=== PATIENT | female | born 1970 | race Two or more races ===

== ENCOUNTER 2019-03-18 23:19 | Inpatient (IN) | payer MEDICAID ==
[~2019-03-18] VITALS: Ht 160 cm; Wt 63.6 kg
[~2019-03-18 23:19] MED LIST: ELTR50TA PO; FERR325T22 PO; FOLI1 PO; GLIP5TAB11 PO; INSLAN SQ; METF-445 PO; MULT-1203 PO; [UNRECOGNIZED DRUG - CODE] IV
[2019-03-18] MEDS ORDERED: GABA-531 PO (23:33)
[2019-03-18] MEDS ORDERED: METF-960 PO (23:33)
[2019-03-18] MEDS ORDERED: LEVE500T53 PO (23:33)
[2019-03-18] MEDS ORDERED: LISI-660 PO (23:33)
[2019-03-18] MEDS ORDERED: ASPI81 PO (23:33)
[2019-03-18 23:36] LABS: GLUCOSE,POINT OF CARE 148 MG/DL (70-110)
[2019-03-18 23:59] LABS: BASOPHILS % (AUTO) 1.9 % (0.0-2.0); HEMATOCRIT 31.3 % (36-46); HEMOGLOBIN 10.2 g/dL (12.0-16.0); LYMPHOCYTES # (AUTO) 0.7 K/uL (1.0-4.8); LYMPHOCYTES % (AUTO) 14.2 % (22.0-44.0); MEAN CORPUSCULAR HEMOGLOBIN 28.6 pg (26.0-34.0); MEAN CORPUSCULAR HGB CONC 32.6 G/dL (31.0-37.0); MEAN CORPUSCULAR VOLUME 88 fL (80-100); MONOCYTES # (AUTO) 0.4 K/uL (0.1-1.0); MONOCYTES % (AUTO) 8.4 % (2.0-9.0); NEUTROPHILS % (AUTO) 58.1 % (40.0-70.0); PLATELET COUNT (AUTO) 132 K/uL (150-450); RED BLOOD CELL COUNT(AUTO) 3.56 MIL/uL (4.00-5.20); RED CELL DISTRIBUTION WIDTH 15.9 % (11.5-14.5)
[2019-03-19 00:14] LABS: CALCIUM, TOTAL 8.9 mg/dL (8.8-10.5); CREATININE 2.39 mg/dL (0.60-1.30); POTASSIUM 5.2 mmol/L (3.5-5.1)
[2019-03-19 00:25] LABS: ALBUMIN 2.5 g/dL (3.4-5.0); BILIRUBIN,TOTAL 0.4 mg/dL (0.1-1.0); TOTAL PROTEIN, SERUM 6.5 g/dL (6.4-8.2)
[2019-03-19 00:35] LABS: EOSINOPHILS % (AUTO) 17.4 % (1.0-6.0)
[2019-03-19 02:40] LABS: APPEARANCE,URINE CLOUDY (CLEAR); BILIRUBIN,URINE NEGATIVE (NEGATIVE); GLUCOSE, URINE (UA) NEGATIVE (NEGATIVE); KETONES,URINE NEGATIVE (NEGATIVE); LEUKOCYTE ESTERASE ,URINE NEGATIVE (NEGATIVE); NITRATE,URINE NEGATIVE (NEGATIVE); OCCULT BLOOD,URINE SMALL (NEGATIVE); PROTEIN,URINE SEE CONFIRM (NEGATIVE); UROBILINOGEN,URINE 0.2 mg/dL (<=1.0)
[2019-03-19] MEDS ORDERED: SODIUM CHLORIDE 0.9% 1,000 ML IV ONE ×2 (02:45→08:15)
[2019-03-19] MEDS ORDERED: MORPHINE SULFATE 4 MG/ML SYRINGE IVP ONE (02:45)
[2019-03-19] MEDS ORDERED: ONDANSETRON HCL 4 MG/2 ML VIAL IVP ONE (02:45)
[2019-03-19 02:46] LABS: SULFOSALICYLIC ACID,URINE 4+ (Negative)
[2019-03-19 02:47] LABS: BACTERIA,URINE Many /HPF (None Seen); RBC,URINE 0-2 /HPF (0-2)
[2019-03-19 02:49] LABS: SQUAMOUS EPITHELIAL CELL,UR Rare /LPF (None Seen); TRANSITIONAL EPI CELLS,URINE Rare /LPF (None Seen)
[2019-03-19] MEDS ORDERED: CefTRIAXone 1 GM/DEXTROSE 50 ML IV ONE (04:15)
[2019-03-19] MEDS ORDERED: ONDANSETRON HCL 4 MG/2 ML VIAL IVP PRN ×2 (06:15→08:15)
[2019-03-19] MEDS ORDERED: 0.9% SODIUM CHLORIDE 10 ML SYRINGE IVP PRN (06:15)
[2019-03-19] MEDS ORDERED: ACETAMINOPHEN 325 MG TABLET PO PRN (06:15)
[2019-03-19] MEDS ORDERED: MAGNESIUM HYDROXIDE SUSPENSION 30 ML UDCUP PO PRN (08:15)
[2019-03-19] MEDS ORDERED: ZOLPIDEM TARTRATE 5 MG TABLET PO PRN (08:15)
[2019-03-19] MEDS ORDERED: BISACODYL 10 MG RECTAL RECTAL SUPPOSITORY PR PRN (08:15)
[2019-03-19] MEDS ORDERED: MORPHINE SULFATE 2 MG/ML SYRINGE IVP PRN (08:15)
[2019-03-19] MEDS ORDERED: DEXTROSE 50%-WATER 25 GM/50 ML SYRINGE IVP PRN (08:15)
[2019-03-19] MEDS ORDERED: HYDROCODONE/ACETAMINOPHEN 5-325 MG TABLET PO PRN (08:15)
[2019-03-19 08:19] VITALS: BP 139/77
[2019-03-19] MEDS: PANTOPRAZOLE SODIUM 40 MG DR TABLET PO SCH (08:56)
[2019-03-19] MEDS: GABAPENTIN 300 MG CAPSULE PO SCH ×3 (08:56→20:01)
[2019-03-19] MEDS: DOCUSATE SODIUM 100 MG CAPSULE PO SCH ×2 (08:56→20:01)
[2019-03-19] MEDS: ASPIRIN 81 MG CHEWABLE TABLET PO SCH (08:57)
[2019-03-19] MEDS: LevETIRAcetam 500 MG TABLET PO SCH ×2 (08:58→20:01)
[2019-03-19] MEDS: INSULIN GLARGINE,HUM.REC.ANLOG 100 UNITS/ML SQ SCH (10:05)
[2019-03-19 11:51] LABS: GLUCOMETER DEV NAME(LOC) 6N.1; GLUCOSE,POINT OF CARE 92 MG/DL (70-110)
[2019-03-19 12:00] LABS: GLUCOMETER DEV NAME(LOC) 6N.1; GLUCOSE,POINT OF CARE 157 MG/DL (70-110)
[2019-03-19] MEDS: INSULIN LISPRO 100 UNITS/ML SQ PRN (13:01)
[2019-03-19 13:16] VITALS: BP_SYST 123; BP_SYST 132; BP_DIAS 67; BP_DIAS 69
[2019-03-19] MEDS: HEPARIN SODIUM,PORCINE 5,000 UNITS/ML VIAL SQ SCH ×2 (16:21→23:17)
[2019-03-19 16:56] VITALS: BP 124/72
[2019-03-19] MEDS: GlipiZIDE 5 MG TABLET PO SCH (18:33)
[2019-03-19 19:30] VITALS: BP 138/71
[2019-03-19] MEDS ORDERED: PNEUMOCOCCAL VACCINE POLYVALENT 0.5 ML VIAL [PPSV23] IM ONE (19:30)
[2019-03-19] MEDS ORDERED: SODIUM CHLORIDE 0.9% 250 ML IV ONE (19:47)
[2019-03-19] MEDS: ACETAMINOPHEN 325 MG TABLET PO PRN (20:01)
[2019-03-19 21:06] LABS: GLUCOMETER DEV NAME(LOC) 6N.1; GLUCOSE,POINT OF CARE 125 MG/DL (70-110)
[2019-03-19 21:06] LABS: GLUCOMETER DEV NAME(LOC) 6N.1; GLUCOSE,POINT OF CARE 123 MG/DL (70-110)
[2019-03-19 23:15] VITALS: BP 124/66
[2019-03-20] MEDS ORDERED: SODIUM CHLORIDE 0.9% 500 ML IV ONE (02:57)
[2019-03-20] MEDS: CefTRIAXone 1 GM/DEXTROSE 50 ML IV SCH (03:01)
[2019-03-20 04:40] VITALS: BP 139/80
[2019-03-20 06:03] LABS: BASOPHILS % (AUTO) 1.4 % (0.0-2.0); EOSINOPHILS % (AUTO) 13.3 % (1.0-6.0); HEMATOCRIT 29.6 % (36-46); HEMOGLOBIN 9.6 g/dL (12.0-16.0); LYMPHOCYTES # (AUTO) 0.7 K/uL (1.0-4.8); LYMPHOCYTES % (AUTO) 12.5 % (22.0-44.0); MEAN CORPUSCULAR HEMOGLOBIN 28.9 pg (26.0-34.0); MEAN CORPUSCULAR HGB CONC 32.4 G/dL (31.0-37.0); MEAN CORPUSCULAR VOLUME 89 fL (80-100); MONOCYTES # (AUTO) 0.4 K/uL (0.1-1.0); MONOCYTES % (AUTO) 6.8 % (2.0-9.0); NEUTROPHILS # (AUTO) 3.9 K/uL (1.8-7.7); PLATELET COUNT (AUTO) 101 K/uL (150-450); RED BLOOD CELL COUNT(AUTO) 3.33 MIL/uL (4.00-5.20); RED CELL DISTRIBUTION WIDTH 15.7 % (11.5-14.5)
[2019-03-20 06:13] LABS: CALCIUM, TOTAL 8.3 mg/dL (8.8-10.5); CREATININE 2.05 mg/dL (0.60-1.30); POTASSIUM 5.1 mmol/L (3.5-5.1)
[2019-03-20] MEDS: GlipiZIDE 5 MG TABLET PO SCH (06:22)
[2019-03-20 06:31] LABS: GLUCOMETER DEV NAME(LOC) 6N.1; GLUCOSE,POINT OF CARE 193 MG/DL (70-110)
[2019-03-20 06:31] LABS: GLUCOMETER DEV NAME(LOC) 6N.1; GLUCOSE,POINT OF CARE 47 MG/DL (70-110)
[2019-03-20 06:31] LABS: GLUCOMETER DEV NAME(LOC) 6N.1; GLUCOSE,POINT OF CARE 55 MG/DL (70-110)
[2019-03-20 07:55] VITALS: BP 154/76
[2019-03-20] MEDS: DOCUSATE SODIUM 100 MG CAPSULE PO SCH ×2 (08:03→20:00)
[2019-03-20] MEDS: LevETIRAcetam 500 MG TABLET PO SCH ×2 (08:03→20:00)
[2019-03-20] MEDS: GABAPENTIN 300 MG CAPSULE PO SCH ×3 (08:04→20:00)
[2019-03-20] MEDS: HEPARIN SODIUM,PORCINE 5,000 UNITS/ML VIAL SQ SCH ×3 (08:04→23:31)
[2019-03-20] MEDS: PANTOPRAZOLE SODIUM 40 MG DR TABLET PO SCH (08:04)
[2019-03-20] MEDS: ASPIRIN 81 MG CHEWABLE TABLET PO SCH (08:04)
[2019-03-20] MEDS: INSULIN GLARGINE,HUM.REC.ANLOG 100 UNITS/ML SQ SCH (08:13)
[2019-03-20 09:01] LABS: GLUCOMETER DEV NAME(LOC) 6N.1; GLUCOSE,POINT OF CARE 194 MG/DL (70-110)
[2019-03-20] MEDS ORDERED: SODIUM CHLORIDE 0.9% 1,000 ML IV ONE (11:30)
[2019-03-20 11:52] VITALS: BP 139/77
[2019-03-20] MEDS: ACETAMINOPHEN 325 MG TABLET PO PRN (11:56)
[2019-03-20 14:35] LABS: GLUCOMETER DEV NAME(LOC) 6N.1; GLUCOSE,POINT OF CARE 178 MG/DL (70-110)
[2019-03-20 15:44] VITALS: BP 135/73
[2019-03-20] MEDS: INSULIN LISPRO 100 UNITS/ML SQ PRN (20:09)
[2019-03-20 20:12] VITALS: BP 133/77
[2019-03-20 21:46] LABS: GLUCOMETER DEV NAME(LOC) 6N.1; GLUCOSE,POINT OF CARE 121 MG/DL (70-110)
[2019-03-20 21:46] LABS: GLUCOMETER DEV NAME(LOC) 6N.1; GLUCOSE,POINT OF CARE 204 MG/DL (70-110)
[2019-03-20 23:54] VITALS: BP 138/80
[2019-03-21] MEDS: CefTRIAXone 1 GM/DEXTROSE 50 ML IV SCH (03:39)
[2019-03-21 04:00] VITALS: BP 134/78
[2019-03-21 05:51] LABS: GLUCOMETER DEV NAME(LOC) 6N.1; GLUCOSE,POINT OF CARE 103 MG/DL (70-110)
[2019-03-21 06:58] LABS: HEMATOCRIT 29.2 % (36-46); HEMOGLOBIN 9.4 g/dL (12.0-16.0); LYMPHOCYTES # (AUTO) 0.7 K/uL (1.0-4.8); LYMPHOCYTES % (AUTO) 13.7 % (22.0-44.0); MEAN CORPUSCULAR HEMOGLOBIN 28.7 pg (26.0-34.0); MEAN CORPUSCULAR HGB CONC 32.2 G/dL (31.0-37.0); MEAN CORPUSCULAR VOLUME 89 fL (80-100); MONOCYTES # (AUTO) 0.4 K/uL (0.1-1.0); MONOCYTES % (AUTO) 7.6 % (2.0-9.0); NEUTROPHILS # (AUTO) 3.1 K/uL (1.8-7.7); NEUTROPHILS % (AUTO) 62.2 % (40.0-70.0); PLATELET COUNT (AUTO) 111 K/uL (150-450); RED BLOOD CELL COUNT(AUTO) 3.27 MIL/uL (4.00-5.20); RED CELL DISTRIBUTION WIDTH 15.6 % (11.5-14.5)
[2019-03-21 07:07] LABS: EOSINOPHILS % (AUTO) 15.5 % (1.0-6.0)
[2019-03-21 07:39] LABS: CALCIUM, TOTAL 8.5 mg/dL (8.8-10.5); CREATININE 2.15 mg/dL (0.60-1.30); POTASSIUM 5.4 mmol/L (3.5-5.1)
[2019-03-21 07:53] VITALS: BP_SYST 115; BP_SYST 136; BP_DIAS 78; BP_DIAS 85
[2019-03-21] MEDS: PANTOPRAZOLE SODIUM 40 MG DR TABLET PO SCH (07:55)
[2019-03-21] MEDS: DOCUSATE SODIUM 100 MG CAPSULE PO SCH (07:55)
[2019-03-21] MEDS: HEPARIN SODIUM,PORCINE 5,000 UNITS/ML VIAL SQ SCH ×2 (07:55→17:12)
[2019-03-21] MEDS: ASPIRIN 81 MG CHEWABLE TABLET PO SCH (07:55)
[2019-03-21] MEDS: LevETIRAcetam 500 MG TABLET PO SCH (07:55)
[2019-03-21] MEDS: GABAPENTIN 300 MG CAPSULE PO SCH ×2 (07:55→17:12)
[2019-03-21 11:23] VITALS: BP 140/76
[2019-03-21] MEDS ORDERED: CIPR500S5 PO (12:27)
[2019-03-21] MEDS ORDERED: SODIUM POLYSTYRENE SULFONATE 15 GM/60 ML SUSPENSION BOTTLE PO ONE (12:30)
[2019-03-21] MEDS ORDERED: CIP250 PO (12:49)
[2019-03-21 12:50] LABS: GLUCOMETER DEV NAME(LOC) 6N.1; GLUCOSE,POINT OF CARE 90 MG/DL (70-110)
[2019-03-21 16:15] VITALS: BP 144/82
== END 2019-03-21 17:45 | disposition home or self-care (01) | DRG 469 ==
LOC: EMS 23:21 → 6N 03-19 05:51
PROVIDERS: ADMIT Internal Medicine; ATTEND Internal Medicine
DX: N17.9 Acute kidney failure, unspecified (principal); E11.22 Type 2 diabetes mellitus with diabetic chronic kidney disease; E11.649 Type 2 diabetes mellitus with hypoglycemia without coma; N10 Acute pyelonephritis; E87.5 Hyperkalemia; N18.3 Chronic kidney disease, stage 3 (moderate); D63.8 Anemia in other chronic diseases classified elsewhere; E87.6 Hypokalemia; E78.5 Hyperlipidemia, unspecified; I12.9 Hypertensive chronic kidney disease with stage 1 through stage 4 chronic kidney disease, or unspecified chronic kidney disease; B96.20 Unspecified Escherichia coli [E. coli] as the cause of diseases classified elsewhere; Z87.440 Personal history of urinary (tract) infections
CPT/HCPCS: 74176; 76770; 83036; 84132; 87086; 90732; 93970; J0696; J1644; J1815; J2270; J2405; J7030; J7040; J7050

== ENCOUNTER 2019-06-13 15:18 | Inpatient (IN) | payer MEDICAID ==
[~2019-06-13] VITALS: Ht 162.6 cm; Wt 66.1 kg
[~2019-06-13 15:18] MED LIST changes: +ASPI81 PO; +CIP250 PO; -FERR325T22 PO; -FOLI1 PO; +GABA-531 PO; -GLIP5TAB11 PO; -INSLAN SQ; +LEVE500T53 PO; -METF-445 PO; -MULT-1203 PO; -[UNRECOGNIZED DRUG - CODE] IV
[2019-06-13] MEDS ORDERED: INSU100I21 SQ (15:41)
[2019-06-13] MEDS ORDERED: METF-960 PO (15:41)
[2019-06-13] MEDS ORDERED: AMPI500C68 PO (15:41)
[2019-06-13] MEDS ORDERED: LISI-662 PO (15:41)
[2019-06-13] MEDS ORDERED: ACET-2247 PO (15:41)
[2019-06-13] MEDS ORDERED: SULF1TAB42 PO (15:41)
[2019-06-13] MEDS ORDERED: ELTR75TA PO (15:41)
[2019-06-13] MEDS ORDERED: FURO20 PO (15:41)
[2019-06-13] MEDS ORDERED: ATOR40TA28 PO (15:41)
[2019-06-13 15:42] LABS: GLUCOSE,POINT OF CARE 173 MG/DL (70-110)
[2019-06-13] MEDS ORDERED: VANCOMYCIN HCL 1.5 GM in DEXTROSE 5%-WATER 250 ML IV ONE ×2 (16:00→23:45)
[2019-06-13] MEDS ORDERED: PIPERACILLIN/TAZO 3.375 GM/D5W 50 ML IV ONE (16:00)
[2019-06-13 16:24] LABS: BASOPHILS % (AUTO) 0.6 % (0.0-2.0); EOSINOPHILS % (AUTO) 4.3 % (1.0-6.0); HEMATOCRIT 31.2 % (36-46); HEMOGLOBIN 9.9 g/dL (12.0-16.0); LYMPHOCYTES # (AUTO) 0.8 K/uL (1.0-4.8); LYMPHOCYTES % (AUTO) 13.1 % (22.0-44.0); MEAN CORPUSCULAR HEMOGLOBIN 27.3 pg (26.0-34.0); MEAN CORPUSCULAR HGB CONC 31.9 G/dL (31.0-37.0); MEAN CORPUSCULAR VOLUME 86 fL (80-100); MONOCYTES # (AUTO) 0.5 K/uL (0.1-1.0); MONOCYTES % (AUTO) 8.1 % (2.0-9.0); NEUTROPHILS # (AUTO) 4.3 K/uL (1.8-7.7); NEUTROPHILS % (AUTO) 73.9 % (40.0-70.0); RED BLOOD CELL COUNT(AUTO) 3.65 MIL/uL (4.00-5.20)
[2019-06-13 16:32] LABS: CALCIUM, TOTAL 8.3 mg/dL (8.8-10.5); CREATININE 3.45 mg/dL (0.60-1.30); POTASSIUM 5.4 mmol/L (3.5-5.1)
[2019-06-13 16:38] LABS: ALBUMIN 2.3 g/dL (3.4-5.0); BILIRUBIN,TOTAL 0.5 mg/dL (0.1-1.0); TOTAL PROTEIN, SERUM 6.3 g/dL (6.4-8.2)
[2019-06-13 16:41] LABS: LACTIC ACID 0.5 mmol/L (0.4-2.0)
[2019-06-13] MEDS ORDERED: VANCOMYCIN HCL 1 GM/D5% WATER 200 ML IV ONE (16:45)
[2019-06-13 17:41] LABS: PLATELET COUNT (AUTO) 27 K/uL (150-450); PLATELET MORPHOLOGY COMMENT DECREASED
[2019-06-13] MEDS ORDERED: ONDANSETRON HCL 4 MG/2 ML VIAL IVP PRN ×2 (18:30→22:45)
[2019-06-13] MEDS ORDERED: 0.9% SODIUM CHLORIDE 10 ML SYRINGE IVP PRN (18:30)
[2019-06-13] MEDS ORDERED: ACETAMINOPHEN 325 MG TABLET PO PRN ×2 (18:30→22:45)
[2019-06-13 19:22] VITALS: BP 133/79
[2019-06-13 21:34] LABS: GLUCOMETER DEV NAME(LOC) 6N.1; GLUCOSE,POINT OF CARE 244 MG/DL (70-110)
[2019-06-13] MEDS ORDERED: DEXTROSE 50%-WATER 25 GM/50 ML SYRINGE IVP PRN (22:45)
[2019-06-13] MEDS ORDERED: BISACODYL 10 MG RECTAL RECTAL SUPPOSITORY PR PRN (22:45)
[2019-06-13] MEDS ORDERED: MAGNESIUM HYDROXIDE SUSPENSION 30 ML UDCUP PO PRN (22:45)
[2019-06-13] MEDS ORDERED: ZOLPIDEM TARTRATE 5 MG TABLET PO PRN (22:45)
[2019-06-13] MEDS ORDERED: MORPHINE SULFATE 2 MG/ML SYRINGE IVP PRN (22:45)
[2019-06-13] MEDS ORDERED: IPRATROPIUM BROMIDE 0.5 MG/2.5 ML NEB SOLUTION NEB PRN (22:45)
[2019-06-13] MEDS ORDERED: ALBUTEROL SULFATE 2.5 MG/0.5 ML NEB SOLUTION NEB PRN (22:45)
[2019-06-13] MEDS ORDERED: HYDROCODONE/ACETAMINOPHEN 5-325 MG TABLET PO PRN (22:45)
[2019-06-13] MEDS ORDERED: VANCOMYCIN HCL 1 GM/D5% WATER 200 ML IV SCH (23:30)
[2019-06-13 23:37] VITALS: BP 116/69
[2019-06-13] MEDS ORDERED: VANCOMYCIN HCL 1 GM/D5% WATER 200 ML IV PRN (23:45)
[2019-06-14] MEDS ORDERED: HEPARIN SODIUM,PORCINE 5,000 UNITS/ML VIAL SQ SCH
[2019-06-14] MEDS ORDERED: SODIUM CHLORIDE 0.9% 500 ML IV ONE (00:13)
[2019-06-14] MEDS: PIPERACILLIN/TAZO 3.375 GM/D5W 50 ML IV SCH ×5 (00:34→23:09)
[2019-06-14] MEDS: LevETIRAcetam 500 MG TABLET PO SCH ×3 (00:34→20:31)
[2019-06-14 05:37] VITALS: BP 118/72
[2019-06-14] MEDS: INSULIN LISPRO 100 UNITS/ML SQ PRN ×3 (05:51→20:37)
[2019-06-14 07:22] LABS: APPEARANCE,URINE CLOUDY (CLEAR); BILIRUBIN,URINE NEGATIVE (NEGATIVE); GLUCOSE, URINE (UA) 250 mg/dL (NEGATIVE); KETONES,URINE NEGATIVE (NEGATIVE); LEUKOCYTE ESTERASE ,URINE NEGATIVE (NEGATIVE); NITRATE,URINE NEGATIVE (NEGATIVE); OCCULT BLOOD,URINE NEGATIVE (NEGATIVE); PROTEIN,URINE SEE CONFIRM (NEGATIVE); UROBILINOGEN,URINE 0.2 mg/dL (<=1.0)
[2019-06-14 07:35] LABS: SULFOSALICYLIC ACID,URINE 4+ (Negative)
[2019-06-14 07:36] LABS: BACTERIA,URINE None Seen /HPF (None Seen); RBC,URINE None Seen /HPF (0-2); SQUAMOUS EPITHELIAL CELL,UR Rare /LPF (None Seen); TRIPLE PHOSPHATE CRYSTAL,UR Many /LPF (None Seen); WBC,URINE None Seen /HPF (0-5)
[2019-06-14 07:40] VITALS: BP 115/71
[2019-06-14 07:45] LABS: BASOPHILS % (AUTO) 0.9 % (0.0-2.0); EOSINOPHILS % (AUTO) 6.4 % (1.0-6.0); HEMATOCRIT 29.4 % (36-46); HEMOGLOBIN 9.5 g/dL (12.0-16.0); LYMPHOCYTES # (AUTO) 0.6 K/uL (1.0-4.8); MEAN CORPUSCULAR HEMOGLOBIN 27.9 pg (26.0-34.0); MEAN CORPUSCULAR HGB CONC 32.4 G/dL (31.0-37.0); MEAN CORPUSCULAR VOLUME 86 fL (80-100); MONOCYTES # (AUTO) 0.5 K/uL (0.1-1.0); MONOCYTES % (AUTO) 9.3 % (2.0-9.0); NEUTROPHILS # (AUTO) 3.9 K/uL (1.8-7.7); NEUTROPHILS % (AUTO) 71.4 % (40.0-70.0); RED BLOOD CELL COUNT(AUTO) 3.41 MIL/uL (4.00-5.20); RED CELL DISTRIBUTION WIDTH 18.1 % (11.5-14.5)
[2019-06-14 07:51] LABS: PLATELET COUNT (AUTO) 20 K/uL (150-450)
[2019-06-14] MEDS ORDERED: MetFORMIN HCL 500 MG TABLET PO SCH (08:00)
[2019-06-14 08:03] LABS: GLUCOMETER DEV NAME(LOC) 6N.1; GLUCOSE,POINT OF CARE 166 MG/DL (70-110)
[2019-06-14] MEDS: GABAPENTIN 300 MG CAPSULE PO SCH ×3 (08:28→20:31)
[2019-06-14] MEDS: DOCUSATE SODIUM 100 MG CAPSULE PO SCH ×2 (08:29→20:30)
[2019-06-14] MEDS: ASPIRIN 81 MG CHEWABLE TABLET PO SCH (08:29)
[2019-06-14] MEDS: ATORVASTATIN CALCIUM 40 MG TABLET PO SCH (08:29)
[2019-06-14] MEDS ORDERED: FUROSEMIDE 20 MG TABLET PO SCH (09:00)
[2019-06-14] MEDS ORDERED: LISINOPRIL 20 MG TABLET PO SCH (09:00)
[2019-06-14 09:01] LABS: ALBUMIN 1.9 g/dL (3.4-5.0); BILIRUBIN,TOTAL 0.4 mg/dL (0.1-1.0); CALCIUM, TOTAL 8.1 mg/dL (8.8-10.5); CREATININE 3.38 mg/dL (0.60-1.30); POTASSIUM 5.3 mmol/L (3.5-5.1); TOTAL PROTEIN, SERUM 5.7 g/dL (6.4-8.2)
[2019-06-14 11:47] VITALS: BP 116/77
[2019-06-14 12:18] LABS: GLUCOMETER DEV NAME(LOC) 6N.1; GLUCOSE,POINT OF CARE 125 MG/DL (70-110)
[2019-06-14 15:40] VITALS: BP 141/89
[2019-06-14] MEDS: PROMACTA 75 MG PO SCH (17:53)
[2019-06-14 19:05] LABS: GLUCOMETER DEV NAME(LOC) 6N.1; GLUCOSE,POINT OF CARE 173 MG/DL (70-110)
[2019-06-14 20:50] VITALS: BP 120/71
[2019-06-14 21:16] LABS: GLUCOMETER DEV NAME(LOC) 6N.1; GLUCOSE,POINT OF CARE 254 MG/DL (70-110)
[2019-06-14 23:39] VITALS: BP 107/68
[2019-06-15 04:15] VITALS: BP 125/74
[2019-06-15] MEDS: PIPERACILLIN/TAZO 3.375 GM/D5W 50 ML IV SCH ×4 (05:16→23:53)
[2019-06-15 05:32] LABS: GLUCOMETER DEV NAME(LOC) 6N.1; GLUCOSE,POINT OF CARE 114 MG/DL (70-110)
[2019-06-15 07:18] LABS: % IRON SATURATION 36.4 % (22-44)
[2019-06-15 07:23] LABS: CALCIUM, TOTAL 7.8 mg/dL (8.8-10.5); CREATININE 3.15 mg/dL (0.60-1.30); MAGNESIUM 1.9 mg/dL (1.80-2.40); PHOSPHORUS 4.2 mg/dL (2.5-4.9); POTASSIUM 5.4 mmol/L (3.5-5.1)
[2019-06-15 08:01] VITALS: BP 129/77
[2019-06-15] MEDS: ASPIRIN 81 MG CHEWABLE TABLET PO SCH (09:00)
[2019-06-15] MEDS: FUROSEMIDE 40 MG/4 ML VIAL IVP SCH (09:37)
[2019-06-15] MEDS: DOCUSATE SODIUM 100 MG CAPSULE PO SCH ×2 (09:37→21:04)
[2019-06-15] MEDS: LevETIRAcetam 500 MG TABLET PO SCH ×2 (09:37→21:04)
[2019-06-15] MEDS: ATORVASTATIN CALCIUM 40 MG TABLET PO SCH (09:37)
[2019-06-15] MEDS: GABAPENTIN 300 MG CAPSULE PO SCH ×3 (09:37→21:04)
[2019-06-15] MEDS: PROMACTA 75 MG PO SCH (09:38)
[2019-06-15] MEDS: EPOETIN ALFA 10,000 UNITS/ML VIAL SQ SCH (09:43)
[2019-06-15 11:11] VITALS: BP 123/73
[2019-06-15] MEDS: INSULIN LISPRO 100 UNITS/ML SQ PRN ×3 (11:46→21:05)
[2019-06-15 17:07] VITALS: BP 131/76
[2019-06-15 18:44] LABS: GLUCOMETER DEV NAME(LOC) 4E.2; GLUCOSE,POINT OF CARE 245 MG/DL (70-110)
[2019-06-15 18:44] LABS: GLUCOMETER DEV NAME(LOC) 4E.2; GLUCOSE,POINT OF CARE 210 MG/DL (70-110)
[2019-06-15 19:32] VITALS: BP 125/76
[2019-06-15 20:07] LABS: CREATININE,URINE 31.1 mg/dL (30.0-125.0)
[2019-06-15 20:13] LABS: CREATININE,SERUM FOR CRCL 3.15 mg/dL (0.60-1.30)
[2019-06-15 21:23] LABS: GLUCOMETER DEV NAME(LOC) 4E.2; GLUCOSE,POINT OF CARE 203 MG/DL (70-110)
[2019-06-15 23:45] VITALS: BP 111/68
[2019-06-16 05:16] VITALS: BP 118/74
[2019-06-16] MEDS: PIPERACILLIN/TAZO 3.375 GM/D5W 50 ML IV SCH ×4 (06:40→23:48)
[2019-06-16 06:48] LABS: CALCIUM, TOTAL 7.9 mg/dL (8.8-10.5); CREATININE 3.16 mg/dL (0.60-1.30); MAGNESIUM 1.9 mg/dL (1.80-2.40); PHOSPHORUS 4.2 mg/dL (2.5-4.9); POTASSIUM 4.7 mmol/L (3.5-5.1); VANCOMYCIN,RANDOM 18.4 mcg/mL (25.0-50.0)
[2019-06-16 07:58] VITALS: BP 116/67
[2019-06-16] MEDS: ASPIRIN 81 MG CHEWABLE TABLET PO SCH (08:54)
[2019-06-16] MEDS: PROMACTA 75 MG PO SCH (08:54)
[2019-06-16] MEDS: DOCUSATE SODIUM 100 MG CAPSULE PO SCH ×2 (08:54→20:40)
[2019-06-16] MEDS: ATORVASTATIN CALCIUM 40 MG TABLET PO SCH (08:54)
[2019-06-16] MEDS: GABAPENTIN 300 MG CAPSULE PO SCH ×3 (08:54→20:40)
[2019-06-16] MEDS: LevETIRAcetam 500 MG TABLET PO SCH ×2 (08:54→20:40)
[2019-06-16] MEDS: FUROSEMIDE 40 MG/4 ML VIAL IVP SCH (08:55)
[2019-06-16] MEDS ORDERED: VANCOMYCIN HCL 1.25 GM in DEXTROSE 5%-WATER 250 ML IV ONE (10:00)
[2019-06-16 11:36] VITALS: BP 137/83
[2019-06-16] MEDS: INSULIN LISPRO 100 UNITS/ML SQ PRN ×3 (12:09→20:47)
[2019-06-16 19:40] VITALS: BP 127/76
[2019-06-16 19:58] LABS: GLUCOMETER DEV NAME(LOC) 6N.1; GLUCOSE,POINT OF CARE 215 MG/DL (70-110)
[2019-06-16 23:15] VITALS: BP 120/74
[2019-06-17] MEDS ORDERED: SODIUM CHLORIDE 0.9% 500 ML IV ONE (04:31)
[2019-06-17 04:55] VITALS: BP 124/75
[2019-06-17] MEDS: PIPERACILLIN/TAZO 3.375 GM/D5W 50 ML IV SCH ×4 (05:49→23:54)
[2019-06-17] MEDS: INSULIN LISPRO 100 UNITS/ML SQ PRN ×4 (06:54→21:22)
[2019-06-17 08:02] LABS: CALCIUM, TOTAL 8.4 mg/dL (8.8-10.5); CREATININE 2.99 mg/dL (0.60-1.30); MAGNESIUM 1.9 mg/dL (1.80-2.40); PHOSPHORUS 4.2 mg/dL (2.5-4.9); POTASSIUM 4.5 mmol/L (3.5-5.1)
[2019-06-17 08:08] VITALS: BP 114/70
[2019-06-17] MEDS: LevETIRAcetam 500 MG TABLET PO SCH ×2 (09:36→20:24)
[2019-06-17] MEDS: FUROSEMIDE 40 MG/4 ML VIAL IVP SCH (09:36)
[2019-06-17] MEDS: GABAPENTIN 300 MG CAPSULE PO SCH ×3 (09:36→20:24)
[2019-06-17] MEDS: PROMACTA 75 MG PO SCH (09:36)
[2019-06-17] MEDS: ASPIRIN 81 MG CHEWABLE TABLET PO SCH (09:37)
[2019-06-17] MEDS: EPOETIN ALFA 10,000 UNITS/ML VIAL SQ SCH (09:37)
[2019-06-17] MEDS: DOCUSATE SODIUM 100 MG CAPSULE PO SCH ×2 (09:37→20:24)
[2019-06-17] MEDS: ATORVASTATIN CALCIUM 40 MG TABLET PO SCH (09:37)
[2019-06-17 11:50] VITALS: BP 104/65
[2019-06-17 12:08] LABS: GLUCOMETER DEV NAME(LOC) 6N.1; GLUCOSE,POINT OF CARE 144 MG/DL (70-110)
[2019-06-17 12:08] LABS: GLUCOMETER DEV NAME(LOC) 6N.1; GLUCOSE,POINT OF CARE 174 MG/DL (70-110)
[2019-06-17 15:41] VITALS: BP 144/88
[2019-06-17 17:06] LABS: GLUCOMETER DEV NAME(LOC) 6N.2; GLUCOSE,POINT OF CARE 134 MG/DL (70-110)
[2019-06-17 17:06] LABS: GLUCOMETER DEV NAME(LOC) 6N.2; GLUCOSE,POINT OF CARE 228 MG/DL (70-110)
[2019-06-17 17:07] LABS: GLUCOMETER DEV NAME(LOC) 4E.2; GLUCOSE,POINT OF CARE 196 MG/DL (70-110)
[2019-06-17 19:45] VITALS: BP 132/75
[2019-06-17 20:28] LABS: GLUCOMETER DEV NAME(LOC) 6N.1; GLUCOSE,POINT OF CARE 254 MG/DL (70-110)
[2019-06-17 20:50] LABS: GLUCOMETER DEV NAME(LOC) 4E.2; GLUCOSE,POINT OF CARE 262 MG/DL (70-110)
[2019-06-17 23:35] VITALS: BP 130/78
[2019-06-18 04:25] VITALS: BP 127/76
[2019-06-18] MEDS: PIPERACILLIN/TAZO 3.375 GM/D5W 50 ML IV SCH ×4 (05:55→23:53)
[2019-06-18] MEDS: INSULIN LISPRO 100 UNITS/ML SQ PRN ×4 (06:22→20:45)
[2019-06-18 07:39] VITALS: BP 97/60
[2019-06-18 07:42] LABS: CALCIUM, TOTAL 8.1 mg/dL (8.8-10.5); CREATININE 3.27 mg/dL (0.60-1.30); POTASSIUM 4.4 mmol/L (3.5-5.1); VANCOMYCIN,RANDOM 20.1 mcg/mL (25.0-50.0)
[2019-06-18] MEDS: ASPIRIN 81 MG CHEWABLE TABLET PO SCH (08:30)
[2019-06-18] MEDS: LevETIRAcetam 500 MG TABLET PO SCH ×2 (08:30→20:39)
[2019-06-18] MEDS: ATORVASTATIN CALCIUM 40 MG TABLET PO SCH (08:30)
[2019-06-18] MEDS: DOCUSATE SODIUM 100 MG CAPSULE PO SCH ×2 (08:30→20:39)
[2019-06-18] MEDS: GABAPENTIN 300 MG CAPSULE PO SCH ×3 (08:30→20:39)
[2019-06-18] MEDS: PROMACTA 75 MG PO SCH (08:31)
[2019-06-18 10:07] LABS: GLUCOMETER DEV NAME(LOC) 4E.2; GLUCOSE,POINT OF CARE 151 MG/DL (70-110)
[2019-06-18 11:44] LABS: GLUCOMETER DEV NAME(LOC) 6N.1; GLUCOSE,POINT OF CARE 226 MG/DL (70-110)
[2019-06-18 11:49] VITALS: BP 118/75
[2019-06-18] MEDS: FUROSEMIDE 40 MG/4 ML VIAL IVP SCH (11:57)
[2019-06-18] MEDS ORDERED: VANCOMYCIN HCL 1.25 GM in DEXTROSE 5%-WATER 250 ML IV ONE (12:00)
[2019-06-18 16:13] VITALS: BP 131/67
[2019-06-18 17:01] LABS: GLUCOMETER DEV NAME(LOC) 6N.2; GLUCOSE,POINT OF CARE 347 MG/DL (70-110)
[2019-06-18 19:26] VITALS: BP 144/79
[2019-06-18 21:34] LABS: GLUCOMETER DEV NAME(LOC) 6N.1; GLUCOSE,POINT OF CARE 341 MG/DL (70-110)
[2019-06-19 00:27] VITALS: BP 131/77
[2019-06-19 04:00] VITALS: BP 124/71
[2019-06-19] MEDS: PIPERACILLIN/TAZO 3.375 GM/D5W 50 ML IV SCH ×2 (05:54→11:53)
[2019-06-19] MEDS: INSULIN LISPRO 100 UNITS/ML SQ PRN (05:55)
[2019-06-19 07:25] VITALS: BP 102/67
[2019-06-19 07:53] LABS: CALCIUM, TOTAL 8.6 mg/dL (8.8-10.5); CREATININE 2.86 mg/dL (0.60-1.30); POTASSIUM 4.5 mmol/L (3.5-5.1)
[2019-06-19] MEDS: DOCUSATE SODIUM 100 MG CAPSULE PO SCH (09:34)
[2019-06-19] MEDS: GABAPENTIN 300 MG CAPSULE PO SCH (09:34)
[2019-06-19] MEDS: LevETIRAcetam 500 MG TABLET PO SCH (09:34)
[2019-06-19] MEDS: PROMACTA 75 MG PO SCH (09:34)
[2019-06-19] MEDS: ATORVASTATIN CALCIUM 40 MG TABLET PO SCH (09:34)
[2019-06-19] MEDS: FUROSEMIDE 40 MG/4 ML VIAL IVP SCH (09:35)
[2019-06-19] MEDS: ASPIRIN 81 MG CHEWABLE TABLET PO SCH (09:40)
[2019-06-19 11:00] VITALS: BP 109/71
[2019-06-19 19:40] LABS: GLUCOMETER DEV NAME(LOC) 6N.2; GLUCOSE,POINT OF CARE 158 MG/DL (70-110)
== END 2019-06-19 13:00 | disposition home or self-care (01) | DRG 383 ==
LOC: EMS 15:22 → 6N 18:29 → 4E 06-15 05:46 → 6N 06-16 15:20
PROVIDERS: ADMIT Hospitalist; ATTEND Hospitalist
DX: L03.115 Cellulitis of right lower limb (principal); N17.9 Acute kidney failure, unspecified; D69.3 Immune thrombocytopenic purpura; I13.2 Hypertensive heart and chronic kidney disease with heart failure and with stage 5 chronic kidney disease, or end stage renal disease; E44.0 Moderate protein-calorie malnutrition; E11.22 Type 2 diabetes mellitus with diabetic chronic kidney disease; N18.6 End stage renal disease; E87.5 Hyperkalemia; E11.40 Type 2 diabetes mellitus with diabetic neuropathy, unspecified; E11.621 Type 2 diabetes mellitus with foot ulcer; L97.519 Non-pressure chronic ulcer of other part of right foot with unspecified severity; D64.9 Anemia, unspecified; E78.5 Hyperlipidemia, unspecified; I34.0 Nonrheumatic mitral (valve) insufficiency; E11.319 Type 2 diabetes mellitus with unspecified diabetic retinopathy without macular edema; E11.51 Type 2 diabetes mellitus with diabetic peripheral angiopathy without gangrene; G40.909 Epilepsy, unspecified, not intractable, without status epilepticus; I25.10 Atherosclerotic heart disease of native coronary artery without angina pectoris; I50.32 Chronic diastolic (congestive) heart failure; N13.30 Unspecified hydronephrosis; F17.210 Nicotine dependence, cigarettes, uncomplicated; N27.0 Small kidney, unilateral; Z79.4 Long term (current) use of insulin; Z79.82 Long term (current) use of aspirin; Z79.899 Other long term (current) drug therapy; Z86.73 Personal history of transient ischemic attack (TIA), and cerebral infarction without residual deficits; Z98.891 History of uterine scar from previous surgery; Z99.2 Dependence on renal dialysis; Z68.25 Body mass index [BMI] 25.0-25.9, adult
CPT/HCPCS: 76770; 81050; 82575; 83540; 83550; 83605; 83735; 84100; 84156; 84166; 84300; 87040; 87081; 93306; 93925; 93970; G0378; J0885; J1940; J2543; J3370; J7040; J7060

== ENCOUNTER 2019-07-23 12:05 | Inpatient (IN) | payer MEDICAID ==
[~2019-07-23] VITALS: Ht 162.6 cm; Wt 75.7 kg
[~2019-07-23 12:05] MED LIST changes: +ACET-2247 PO; +ASPI-728 PO; -ASPI81 PO; +ATOR40TA28 PO; -CIP250 PO; -ELTR50TA PO; +ELTR75TA PO; +FURO20 PO; +METF-960 PO; +SULF1TAB42 PO
[2019-07-23 12:30] LABS: GLUCOSE,POINT OF CARE 209 MG/DL (70-110)
[2019-07-23] MEDS ORDERED: VANCOMYCIN HCL 1 GM/D5% WATER 200 ML IV ONE (13:15)
[2019-07-23] MEDS ORDERED: PIPERACILLIN/TAZO 3.375 GM/D5W 50 ML IV ONE (13:15)
[2019-07-23 14:14] LABS: BASOPHILS % (AUTO) 0.5 % (0.0-2.0); HEMATOCRIT 26.3 % (36-46); HEMOGLOBIN 8.4 g/dL (12.0-16.0); LYMPHOCYTES # (AUTO) 0.7 K/uL (1.0-4.8); LYMPHOCYTES % (AUTO) 8.5 % (22.0-44.0); MEAN CORPUSCULAR HEMOGLOBIN 27.6 pg (26.0-34.0); MEAN CORPUSCULAR HGB CONC 32.1 G/dL (31.0-37.0); MEAN CORPUSCULAR VOLUME 86 fL (80-100); MONOCYTES # (AUTO) 0.6 K/uL (0.1-1.0); MONOCYTES % (AUTO) 7.3 % (2.0-9.0); NEUTROPHILS # (AUTO) 6.7 K/uL (1.8-7.7); NEUTROPHILS % (AUTO) 80.7 % (40.0-70.0); PLATELET COUNT (AUTO) 37 K/uL (150-450); RED BLOOD CELL COUNT(AUTO) 3.06 MIL/uL (4.00-5.20); RED CELL DISTRIBUTION WIDTH 19.2 % (11.5-14.5)
[2019-07-23 14:29] LABS: CALCIUM, TOTAL 8.1 mg/dL (8.8-10.5); CREATININE 2.09 mg/dL (0.60-1.30); POTASSIUM 5.4 mmol/L (3.5-5.1)
[2019-07-23 14:40] LABS: LACTIC ACID 1.4 mmol/L (0.4-2.0)
[2019-07-23 14:47] LABS: ALBUMIN 1.9 g/dL (3.4-5.0); BILIRUBIN,TOTAL 0.3 mg/dL (0.1-1.0); TOTAL PROTEIN, SERUM 5.8 g/dL (6.4-8.2)
[2019-07-23] MEDS ORDERED: ONDANSETRON HCL 4 MG/2 ML VIAL IVP PRN (15:45)
[2019-07-23] MEDS ORDERED: ACETAMINOPHEN 325 MG TABLET PO PRN (15:45)
[2019-07-23] MEDS ORDERED: DEXTROSE 50%-WATER 25 GM/50 ML SYRINGE IVP PRN (15:45)
[2019-07-23] MEDS: INSULIN LISPRO 100 UNITS/ML SQ PRN ×2 (17:22→20:33)
[2019-07-23 17:26] VITALS: BP 148/90
[2019-07-23] MEDS ORDERED: INFLUENZA VIRUS VACCINE QVS 2019-20 (3YR+)/PF 60 MCG/0.5 ML SYRINGE IM ONE (18:30)
[2019-07-23 19:28] LABS: GLUCOMETER DEV NAME(LOC) 6N.1; GLUCOSE,POINT OF CARE 257 MG/DL (70-110)
[2019-07-23 19:38] VITALS: BP 154/85
[2019-07-23 20:55] LABS: GLUCOMETER DEV NAME(LOC) 6N.2; GLUCOSE,POINT OF CARE 241 MG/DL (70-110)
[2019-07-23 23:43] VITALS: BP 145/94
[2019-07-24] MEDS ORDERED: ALBUTEROL SULFATE 2.5 MG/0.5 ML NEB SOLUTION NEB PRN (01:15)
[2019-07-24] MEDS ORDERED: MORPHINE SULFATE 2 MG/ML SYRINGE IVP PRN (01:15)
[2019-07-24] MEDS ORDERED: BISACODYL 10 MG RECTAL RECTAL SUPPOSITORY PR PRN (01:15)
[2019-07-24] MEDS ORDERED: SODIUM CHLORIDE 0.9% 1,000 ML IV SCH (01:15)
[2019-07-24] MEDS ORDERED: ZOLPIDEM TARTRATE 5 MG TABLET PO PRN (01:15)
[2019-07-24] MEDS ORDERED: IPRATROPIUM BROMIDE 0.5 MG/2.5 ML NEB SOLUTION NEB PRN (01:15)
[2019-07-24] MEDS ORDERED: ONDANSETRON HCL 4 MG/2 ML VIAL IVP PRN (01:15)
[2019-07-24] MEDS ORDERED: MAGNESIUM HYDROXIDE SUSPENSION 30 ML UDCUP PO PRN (01:15)
[2019-07-24] MEDS ORDERED: ACETAMINOPHEN 325 MG TABLET PO PRN (01:15)
[2019-07-24] MEDS ORDERED: HYDROCODONE/ACETAMINOPHEN 5-325 MG TABLET PO PRN (01:15)
[2019-07-24] MEDS ORDERED: VANCOMYCIN HCL 1 GM/D5% WATER 200 ML IV SCH (01:30)
[2019-07-24] MEDS ORDERED: PIPERACILLIN/TAZO 3.375 GM/D5W 50 ML IV SCH (01:30)
[2019-07-24] MEDS ORDERED: SODIUM CHLORIDE 0.9% 500 ML IV ONE (01:51)
[2019-07-24] MEDS: LevETIRAcetam 500 MG TABLET PO SCH ×3 (02:05→20:37)
[2019-07-24] MEDS: PIPERACILLIN SODIUM/TAZOBACTAM 2.25 GM in DEXTROSE 5%-WATER 50 ML IV SCH ×4 (02:06→20:38)
[2019-07-24 04:40] VITALS: BP 138/74
[2019-07-24 06:11] LABS: GLUCOMETER DEV NAME(LOC) 6N.2; GLUCOSE,POINT OF CARE 176 MG/DL (70-110)
[2019-07-24 07:25] VITALS: BP 133/83
[2019-07-24] MEDS: VANCOMYCIN HCL 1 GM/D5% WATER 200 ML IV SCH (07:29)
[2019-07-24 07:52] LABS: BASOPHILS % (AUTO) 0.7 % (0.0-2.0); EOSINOPHILS % (AUTO) 6.3 % (1.0-6.0); HEMATOCRIT 24.2 % (36-46); HEMOGLOBIN 7.9 g/dL (12.0-16.0); LYMPHOCYTES # (AUTO) 0.9 K/uL (1.0-4.8); LYMPHOCYTES % (AUTO) 14.5 % (22.0-44.0); MEAN CORPUSCULAR HEMOGLOBIN 27.9 pg (26.0-34.0); MEAN CORPUSCULAR HGB CONC 32.6 G/dL (31.0-37.0); MEAN CORPUSCULAR VOLUME 86 fL (80-100); MONOCYTES # (AUTO) 0.6 K/uL (0.1-1.0); NEUTROPHILS # (AUTO) 4.5 K/uL (1.8-7.7); NEUTROPHILS % (AUTO) 69.5 % (40.0-70.0); PLATELET COUNT (AUTO) 26 K/uL (150-450); RED BLOOD CELL COUNT(AUTO) 2.83 MIL/uL (4.00-5.20); RED CELL DISTRIBUTION WIDTH 18.8 % (11.5-14.5)
[2019-07-24] MEDS ORDERED: HEPARIN SODIUM,PORCINE 5,000 UNITS/ML VIAL SQ SCH (08:00)
[2019-07-24 08:12] LABS: ALBUMIN 1.7 g/dL (3.4-5.0); BILIRUBIN,TOTAL 0.3 mg/dL (0.1-1.0); CALCIUM, TOTAL 8.1 mg/dL (8.8-10.5); CREATININE 2.18 mg/dL (0.60-1.30); POTASSIUM 5.1 mmol/L (3.5-5.1); TOTAL PROTEIN, SERUM 5.5 g/dL (6.4-8.2)
[2019-07-24] MEDS: ASPIRIN 81 MG CHEWABLE TABLET PO SCH (08:27)
[2019-07-24] MEDS: DOCUSATE SODIUM 100 MG CAPSULE PO SCH ×2 (08:27→20:38)
[2019-07-24] MEDS: FUROSEMIDE 20 MG TABLET PO SCH (08:27)
[2019-07-24] MEDS: ATORVASTATIN CALCIUM 40 MG TABLET PO SCH (08:27)
[2019-07-24] MEDS: GABAPENTIN 300 MG CAPSULE PO SCH ×3 (08:27→20:37)
[2019-07-24] MEDS ORDERED: DEXTROSE 50%-WATER 25 GM/50 ML SYRINGE IVP PRN (11:30)
[2019-07-24] MEDS: INSULIN LISPRO 100 UNITS/ML SQ PRN ×3 (11:50→23:04)
[2019-07-24 16:59] VITALS: BP 147/92
[2019-07-24 17:43] LABS: GLUCOMETER DEV NAME(LOC) 6N.1; GLUCOSE,POINT OF CARE 134 MG/DL (70-110)
[2019-07-24 19:56] LABS: GLUCOMETER DEV NAME(LOC) 6N.2; GLUCOSE,POINT OF CARE 184 MG/DL (70-110)
[2019-07-24 20:00] VITALS: BP 147/99
[2019-07-25 00:39] VITALS: BP 142/88
[2019-07-25] MEDS: PIPERACILLIN SODIUM/TAZOBACTAM 2.25 GM in DEXTROSE 5%-WATER 50 ML IV SCH ×4 (02:37→20:21)
[2019-07-25 04:45] VITALS: BP 138/82
[2019-07-25] MEDS ORDERED: SODIUM CHLORIDE 0.9% 1,000 ML IV ONE (05:15)
[2019-07-25] MEDS ORDERED: BUPIVACAINE HCL/PF 0.5% 30 ML VIAL ONE (07:17)
[2019-07-25] MEDS ORDERED: VANCOMYCIN HCL 1 GM/VIAL ONE (07:17)
[2019-07-25] MEDS ORDERED: SODIUM CL IRRIG SOLN BAG 3,000 ML IRRIG ONE (07:17)
[2019-07-25] MEDS ORDERED: LIDOCAINE/PF 1% 30 ML VIAL ONE (07:17)
[2019-07-25] MEDS ORDERED: GELATIN SPONGE,ABSORBABLE 100 MM TP ONE (08:39)
[2019-07-25] MEDS ORDERED: FentaNYL CITRATE-PF 100 MCG/2 ML VIAL IVP PRN (09:00)
[2019-07-25] MEDS ORDERED: HYDROmorphone 2 MG/ML SYRINGE IVP PRN (09:00)
[2019-07-25 10:22] VITALS: BP 128/79
[2019-07-25 10:38] LABS: BASOPHILS % (AUTO) 0.9 % (0.0-2.0); EOSINOPHILS % (AUTO) 5.5 % (1.0-6.0); HEMATOCRIT 24.8 % (36-46); HEMOGLOBIN 7.9 g/dL (12.0-16.0); LYMPHOCYTES # (AUTO) 0.5 K/uL (1.0-4.8); MEAN CORPUSCULAR HEMOGLOBIN 27.6 pg (26.0-34.0); MEAN CORPUSCULAR HGB CONC 31.9 G/dL (31.0-37.0); MEAN CORPUSCULAR VOLUME 87 fL (80-100); MONOCYTES # (AUTO) 0.6 K/uL (0.1-1.0); MONOCYTES % (AUTO) 7.7 % (2.0-9.0); NEUTROPHILS # (AUTO) 6.1 K/uL (1.8-7.7); NEUTROPHILS % (AUTO) 78.9 % (40.0-70.0); RED BLOOD CELL COUNT(AUTO) 2.87 MIL/uL (4.00-5.20); RED CELL DISTRIBUTION WIDTH 19.1 % (11.5-14.5)
[2019-07-25] MEDS: ATORVASTATIN CALCIUM 40 MG TABLET PO SCH (10:40)
[2019-07-25] MEDS: FUROSEMIDE 20 MG TABLET PO SCH (10:40)
[2019-07-25] MEDS: DOCUSATE SODIUM 100 MG CAPSULE PO SCH ×2 (10:40→19:37)
[2019-07-25] MEDS: VANCOMYCIN HCL 1 GM/D5% WATER 200 ML IV SCH (10:40)
[2019-07-25] MEDS: LevETIRAcetam 500 MG TABLET PO SCH ×2 (10:40→19:38)
[2019-07-25] MEDS: GABAPENTIN 300 MG CAPSULE PO SCH ×3 (10:40→19:37)
[2019-07-25] MEDS: ASPIRIN 81 MG CHEWABLE TABLET PO SCH (10:40)
[2019-07-25 10:53] LABS: ALBUMIN 1.7 g/dL (3.4-5.0); BILIRUBIN,TOTAL 0.2 mg/dL (0.1-1.0); CALCIUM, TOTAL 8.1 mg/dL (8.8-10.5); CREATININE 2.41 mg/dL (0.60-1.30); POTASSIUM 5.6 mmol/L (3.5-5.1); TOTAL PROTEIN, SERUM 5.5 g/dL (6.4-8.2)
[2019-07-25 11:04] LABS: PLATELET COUNT (AUTO) 68 K/uL (150-450)
[2019-07-25 12:07] LABS: GLUCOMETER DEV NAME(LOC) 6N.1; GLUCOSE,POINT OF CARE 75 MG/DL (70-110)
[2019-07-25 12:07] LABS: GLUCOMETER DEV NAME(LOC) 6N.1; GLUCOSE,POINT OF CARE 242 MG/DL (70-110)
[2019-07-25 12:08] LABS: GLUCOMETER DEV NAME(LOC) 6N.1; GLUCOSE,POINT OF CARE 100 MG/DL (70-110)
[2019-07-25 15:39] VITALS: BP 122/77
[2019-07-25] MEDS ORDERED: SODIUM POLYSTYRENE SULFONATE 15 GM/60 ML SUSPENSION BOTTLE PO ONE (17:00)
[2019-07-25] MEDS: INSULIN LISPRO 100 UNITS/ML SQ PRN ×2 (17:12→20:25)
[2019-07-25] MEDS ORDERED: SODIUM CHLORIDE 0.45% 1,000 ML IV SCH (17:31)
[2019-07-25] MEDS ORDERED: OXYGEN THERAPY IH SCH (20:00)
[2019-07-25 20:16] VITALS: BP 127/76
[2019-07-25] MEDS ORDERED: KETOROLAC TROMETHAMINE 60 MG/2 ML VIAL IM ONE (21:42)
[2019-07-25] MEDS ORDERED: LIDOCAINE 1% 10 ML VIAL ONE (21:42)
[2019-07-25] MEDS ORDERED: PROPOFOL 1% 20 ML VIAL IVP ONE (21:42)
[2019-07-25 23:39] LABS: APPEARANCE,URINE CLEAR (CLEAR); BILIRUBIN,URINE NEGATIVE (NEGATIVE); GLUCOSE, URINE (UA) 250 mg/dL (NEGATIVE); KETONES,URINE NEGATIVE (NEGATIVE); LEUKOCYTE ESTERASE ,URINE NEGATIVE (NEGATIVE); NITRATE,URINE NEGATIVE (NEGATIVE); OCCULT BLOOD,URINE NEGATIVE (NEGATIVE); PH,URINE 7.5 (5.0-8.0); PROTEIN,URINE SEE CONFIRM (NEGATIVE); UROBILINOGEN,URINE 0.2 mg/dL (<=1.0)
[2019-07-25 23:41] LABS: CREATININE,URINE RANDOM 64.8 mg/dL (30.0-125.0); SODIUM,URINE RANDOM 55 mmol/l (20-110); UREA NITROGEN,URINE RANDOM 482 mg/dL (350-1000)
[2019-07-25 23:50] LABS: BACTERIA,URINE None Seen /HPF (None Seen); RBC,URINE 0-2 /HPF (0-2); SQUAMOUS EPITHELIAL CELL,UR Few /LPF (None Seen)
[2019-07-25 23:51] LABS: SULFOSALICYLIC ACID,URINE 4+ (Negative); TRIPLE PHOSPHATE CRYSTAL,UR Many /LPF (None Seen)
[2019-07-26] VITALS (7 sets, daily range): BP systolic 115–143; BP diastolic 66–79
[2019-07-26] MEDS: PIPERACILLIN SODIUM/TAZOBACTAM 2.25 GM in DEXTROSE 5%-WATER 50 ML IV SCH ×3 (02:31→22:40)
[2019-07-26] MEDS ORDERED: MIDAZOLAM HCL 2 MG/2 ML VIAL IVP ONE (05:23)
[2019-07-26] MEDS ORDERED: FentaNYL CITRATE-PF 100 MCG/2 ML VIAL IVP ONE (05:23)
[2019-07-26] MEDS: INSULIN LISPRO 100 UNITS/ML SQ PRN ×3 (05:46→18:03)
[2019-07-26 06:21] LABS: GLUCOMETER DEV NAME(LOC) 6N.1; GLUCOSE,POINT OF CARE 145 MG/DL (70-110)
[2019-07-26 08:01] LABS: BASOPHILS % (AUTO) 0.6 % (0.0-2.0); EOSINOPHILS % (AUTO) 7.9 % (1.0-6.0); HEMATOCRIT 21.8 % (36-46); HEMOGLOBIN 7.1 g/dL (12.0-16.0); LYMPHOCYTES % (AUTO) 16.7 % (22.0-44.0); MEAN CORPUSCULAR HGB CONC 32.5 G/dL (31.0-37.0); MEAN CORPUSCULAR VOLUME 86 fL (80-100); MONOCYTES # (AUTO) 0.6 K/uL (0.1-1.0); MONOCYTES % (AUTO) 10.4 % (2.0-9.0); NEUTROPHILS # (AUTO) 3.9 K/uL (1.8-7.7); NEUTROPHILS % (AUTO) 64.4 % (40.0-70.0); PLATELET COUNT (AUTO) 40 K/uL (150-450); RED BLOOD CELL COUNT(AUTO) 2.52 MIL/uL (4.00-5.20); RED CELL DISTRIBUTION WIDTH 19.1 % (11.5-14.5)
[2019-07-26 08:15] LABS: ALBUMIN 1.5 g/dL (3.4-5.0); BILIRUBIN,TOTAL 0.2 mg/dL (0.1-1.0); CALCIUM, TOTAL 7.8 mg/dL (8.8-10.5); CREATININE 2.66 mg/dL (0.60-1.30); MAGNESIUM 2.3 mg/dL (1.80-2.40); PHOSPHORUS 5.3 mg/dL (2.5-4.9); POTASSIUM 4.5 mmol/L (3.5-5.1); TOTAL PROTEIN, SERUM 5.2 g/dL (6.4-8.2)
[2019-07-26] MEDS: ASPIRIN 81 MG CHEWABLE TABLET PO SCH (08:38)
[2019-07-26] MEDS: DOCUSATE SODIUM 100 MG CAPSULE PO SCH ×2 (08:41→21:00)
[2019-07-26] MEDS: LevETIRAcetam 500 MG TABLET PO SCH ×2 (08:42→22:40)
[2019-07-26] MEDS: ATORVASTATIN CALCIUM 40 MG TABLET PO SCH (08:42)
[2019-07-26] MEDS ORDERED: VANCOMYCIN HCL 750 MG in DEXTROSE 5%-WATER 250 ML IV ONE (09:00)
[2019-07-26] MEDS: GABAPENTIN 300 MG CAPSULE PO SCH ×2 (16:30→22:40)
[2019-07-26 17:17] LABS: GLUCOMETER DEV NAME(LOC) 6N.2; GLUCOSE,POINT OF CARE 246 MG/DL (70-110)
[2019-07-26 17:17] LABS: GLUCOMETER DEV NAME(LOC) 6N.2; GLUCOSE,POINT OF CARE 250 MG/DL (70-110)
[2019-07-27 03:51] VITALS: BP 119/65
[2019-07-27] MEDS: PIPERACILLIN SODIUM/TAZOBACTAM 2.25 GM in DEXTROSE 5%-WATER 50 ML IV SCH ×3 (04:52→14:38)
[2019-07-27 06:07] LABS: GLUCOMETER DEV NAME(LOC) 6N.1; GLUCOSE,POINT OF CARE 191 MG/DL (70-110)
[2019-07-27 06:08] LABS: GLUCOMETER DEV NAME(LOC) 6N.1; GLUCOSE,POINT OF CARE 257 MG/DL (70-110)
[2019-07-27] MEDS: INSULIN LISPRO 100 UNITS/ML SQ PRN ×4 (06:45→22:54)
[2019-07-27 06:53] LABS: BASOPHILS % (AUTO) 0.6 % (0.0-2.0); EOSINOPHILS % (AUTO) 6.5 % (1.0-6.0); HEMATOCRIT 22.3 % (36-46); HEMOGLOBIN 7.3 g/dL (12.0-16.0); LYMPHOCYTES # (AUTO) 1.1 K/uL (1.0-4.8); LYMPHOCYTES % (AUTO) 18.7 % (22.0-44.0); MEAN CORPUSCULAR HGB CONC 32.6 G/dL (31.0-37.0); MEAN CORPUSCULAR VOLUME 86 fL (80-100); MONOCYTES # (AUTO) 0.6 K/uL (0.1-1.0); NEUTROPHILS # (AUTO) 3.9 K/uL (1.8-7.7); NEUTROPHILS % (AUTO) 64.2 % (40.0-70.0); PLATELET COUNT (AUTO) 29 K/uL (150-450); RED BLOOD CELL COUNT(AUTO) 2.59 MIL/uL (4.00-5.20); RED CELL DISTRIBUTION WIDTH 18.9 % (11.5-14.5)
[2019-07-27 07:37] LABS: ALBUMIN 1.6 g/dL (3.4-5.0); BILIRUBIN,TOTAL 0.3 mg/dL (0.1-1.0); CALCIUM, TOTAL 7.8 mg/dL (8.8-10.5); CREATININE 2.79 mg/dL (0.60-1.30); MAGNESIUM 2.4 mg/dL (1.80-2.40); PHOSPHORUS 5.2 mg/dL (2.5-4.9); POTASSIUM 4.8 mmol/L (3.5-5.1); TOTAL PROTEIN, SERUM 5.4 g/dL (6.4-8.2)
[2019-07-27 07:44] VITALS: BP 123/74
[2019-07-27] MEDS ORDERED: VANCOMYCIN HCL 750 MG in DEXTROSE 5%-WATER 250 ML IV SCH (08:00)
[2019-07-27] MEDS: LevETIRAcetam 500 MG TABLET PO SCH ×2 (09:27→22:31)
[2019-07-27] MEDS: DOCUSATE SODIUM 100 MG CAPSULE PO SCH ×2 (09:27→22:31)
[2019-07-27] MEDS: GABAPENTIN 300 MG CAPSULE PO SCH ×3 (09:27→22:31)
[2019-07-27] MEDS: ATORVASTATIN CALCIUM 40 MG TABLET PO SCH (09:27)
[2019-07-27] MEDS: ASPIRIN 81 MG CHEWABLE TABLET PO SCH (09:28)
[2019-07-27 11:13] VITALS: BP 144/79
[2019-07-27 11:49] LABS: GLUCOMETER DEV NAME(LOC) 6N.1; GLUCOSE,POINT OF CARE 236 MG/DL (70-110)
[2019-07-27] MEDS: SEVELAMER CARBONATE 800 MG TABLET PO SCH ×2 (12:30→18:15)
[2019-07-27 13:51] LABS: INR 1.2 (0.9-1.1); PROTHROMBIN TIME 12.4 SEC (9.4-11.6)
[2019-07-27 15:20] VITALS: BP 118/75
[2019-07-27] MEDS: LEVOFLOXACIN 250 MG TABLET PO SCH (18:15)
[2019-07-27 19:17] LABS: GLUCOMETER DEV NAME(LOC) 6N.1; GLUCOSE,POINT OF CARE 132 MG/DL (70-110)
[2019-07-27 20:05] VITALS: BP 131/77
[2019-07-27 20:58] LABS: GLUCOMETER DEV NAME(LOC) 6N.2; GLUCOSE,POINT OF CARE 211 MG/DL (70-110)
[2019-07-27] MEDS: CeFAZolin 1 GM/DEXTROSE 50 ML IV SCH (22:30)
[2019-07-27 23:00] LABS: GLUCOMETER DEV NAME(LOC) 6N.2; GLUCOSE,POINT OF CARE 171 MG/DL (70-110)
[2019-07-28] VITALS (10 sets, daily range): BP systolic 131–160; BP diastolic 75–93
[2019-07-28] MEDS: INSULIN LISPRO 100 UNITS/ML SQ PRN ×3 (05:41→22:06)
[2019-07-28 05:58] LABS: GLUCOMETER DEV NAME(LOC) 6N.1; GLUCOSE,POINT OF CARE 130 MG/DL (70-110)
[2019-07-28] MEDS ORDERED: VANCOMYCIN HCL 500 MG in DEXTROSE 5%-WATER 100 ML IV SCH (08:00)
[2019-07-28 08:02] LABS: BASOPHILS % (AUTO) 1.1 % (0.0-2.0); EOSINOPHILS % (AUTO) 9.2 % (1.0-6.0); HEMATOCRIT 22.5 % (36-46); HEMOGLOBIN 7.3 g/dL (12.0-16.0); LYMPHOCYTES # (AUTO) 0.9 K/uL (1.0-4.8); LYMPHOCYTES % (AUTO) 14.6 % (22.0-44.0); MEAN CORPUSCULAR HEMOGLOBIN 28.2 pg (26.0-34.0); MEAN CORPUSCULAR HGB CONC 32.6 G/dL (31.0-37.0); MEAN CORPUSCULAR VOLUME 87 fL (80-100); MONOCYTES # (AUTO) 0.5 K/uL (0.1-1.0); MONOCYTES % (AUTO) 8.7 % (2.0-9.0); NEUTROPHILS # (AUTO) 3.9 K/uL (1.8-7.7); NEUTROPHILS % (AUTO) 66.4 % (40.0-70.0); PLATELET COUNT (AUTO) 31 K/uL (150-450); RED CELL DISTRIBUTION WIDTH 19.3 % (11.5-14.5)
[2019-07-28] MEDS ORDERED: SODIUM CHLORIDE 0.9% 500 ML IV ONE (08:19)
[2019-07-28 08:45] LABS: ALBUMIN 1.6 g/dL (3.4-5.0); BILIRUBIN,TOTAL 0.2 mg/dL (0.1-1.0); CALCIUM, TOTAL 8.4 mg/dL (8.8-10.5); CREATININE 2.62 mg/dL (0.60-1.30); MAGNESIUM 2.4 mg/dL (1.80-2.40); PHOSPHORUS 5.1 mg/dL (2.5-4.9); POTASSIUM 4.8 mmol/L (3.5-5.1); TOTAL PROTEIN, SERUM 5.4 g/dL (6.4-8.2)
[2019-07-28] MEDS: CeFAZolin 1 GM/DEXTROSE 50 ML IV SCH ×2 (08:56→22:06)
[2019-07-28] MEDS: SEVELAMER CARBONATE 800 MG TABLET PO SCH ×3 (08:56→18:08)
[2019-07-28] MEDS: FUROSEMIDE 20 MG TABLET PO SCH (08:56)
[2019-07-28] MEDS: ATORVASTATIN CALCIUM 40 MG TABLET PO SCH (08:56)
[2019-07-28] MEDS: LevETIRAcetam 500 MG TABLET PO SCH ×2 (08:56→22:07)
[2019-07-28] MEDS: ASPIRIN 81 MG CHEWABLE TABLET PO SCH (08:57)
[2019-07-28] MEDS: GABAPENTIN 300 MG CAPSULE PO SCH ×3 (08:57→22:07)
[2019-07-28] MEDS: DOCUSATE SODIUM 100 MG CAPSULE PO SCH ×2 (09:00→22:07)
[2019-07-28] MEDS ORDERED: LIDOCAINE 1%/EPI 1:200,000/PF 10 ML VIAL ONE (11:08)
[2019-07-28] MEDS ORDERED: HEPARIN SODIUM 1000 UNITS/NS 500 ML ONE (11:08)
[2019-07-28] MEDS ORDERED: SODIUM CL IRRIG SOLN BOTTLE 250 ML IRRIG ONE (13:56)
[2019-07-28 20:17] LABS: GLUCOMETER DEV NAME(LOC) 6N.2; GLUCOSE,POINT OF CARE 110 MG/DL (70-110)
[2019-07-28 20:17] LABS: GLUCOMETER DEV NAME(LOC) 6N.2; GLUCOSE,POINT OF CARE 136 MG/DL (70-110)
[2019-07-29 00:08] VITALS: BP 148/84
[2019-07-29 05:12] VITALS: BP 130/72
[2019-07-29 05:34] LABS: GLUCOMETER DEV NAME(LOC) 6N.2; GLUCOSE,POINT OF CARE 163 MG/DL (70-110)
[2019-07-29 06:40] LABS: GLUCOMETER DEV NAME(LOC) 6N.2; GLUCOSE,POINT OF CARE 137 MG/DL (70-110)
[2019-07-29 06:44] LABS: BASOPHILS % (AUTO) 0.9 % (0.0-2.0); EOSINOPHILS % (AUTO) 8.3 % (1.0-6.0); HEMATOCRIT 24.1 % (36-46); HEMOGLOBIN 7.8 g/dL (12.0-16.0); LYMPHOCYTES % (AUTO) 16.5 % (22.0-44.0); MEAN CORPUSCULAR HEMOGLOBIN 28.1 pg (26.0-34.0); MEAN CORPUSCULAR HGB CONC 32.3 G/dL (31.0-37.0); MEAN CORPUSCULAR VOLUME 87 fL (80-100); MONOCYTES # (AUTO) 0.6 K/uL (0.1-1.0); NEUTROPHILS # (AUTO) 3.9 K/uL (1.8-7.7); NEUTROPHILS % (AUTO) 64.3 % (40.0-70.0); RED BLOOD CELL COUNT(AUTO) 2.77 MIL/uL (4.00-5.20); RED CELL DISTRIBUTION WIDTH 19.6 % (11.5-14.5)
[2019-07-29] MEDS: INSULIN LISPRO 100 UNITS/ML SQ PRN ×4 (06:45→21:29)
[2019-07-29 07:08] LABS: ALBUMIN 1.6 g/dL (3.4-5.0); BILIRUBIN,TOTAL 0.3 mg/dL (0.1-1.0); CALCIUM, TOTAL 8.3 mg/dL (8.8-10.5); CREATININE 2.49 mg/dL (0.60-1.30); POTASSIUM 4.4 mmol/L (3.5-5.1); TOTAL PROTEIN, SERUM 5.4 g/dL (6.4-8.2)
[2019-07-29] MEDS: CeFAZolin 1 GM/DEXTROSE 50 ML IV SCH ×2 (07:33→21:28)
[2019-07-29 07:50] VITALS: BP 132/72
[2019-07-29] MEDS: ATORVASTATIN CALCIUM 40 MG TABLET PO SCH (07:56)
[2019-07-29] MEDS: FUROSEMIDE 20 MG TABLET PO SCH (07:56)
[2019-07-29] MEDS: LevETIRAcetam 500 MG TABLET PO SCH ×2 (07:57→21:27)
[2019-07-29] MEDS: GABAPENTIN 300 MG CAPSULE PO SCH ×3 (07:57→21:27)
[2019-07-29] MEDS: SEVELAMER CARBONATE 800 MG TABLET PO SCH ×3 (07:57→17:39)
[2019-07-29] MEDS: ASPIRIN 81 MG CHEWABLE TABLET PO SCH (07:57)
[2019-07-29] MEDS: LEVOFLOXACIN 250 MG TABLET PO SCH (07:59)
[2019-07-29] MEDS: DOCUSATE SODIUM 100 MG CAPSULE PO SCH ×2 (08:01→21:27)
[2019-07-29 08:49] LABS: PLATELET COUNT (AUTO) 46 K/uL (150-450)
[2019-07-29 11:39] VITALS: BP 144/85
[2019-07-29] MEDS: ELTROMBOPAG OLAMINE 50 MG PO SCH (12:08)
[2019-07-29 15:29] VITALS: BP 125/84
[2019-07-29 17:36] LABS: GLUCOMETER DEV NAME(LOC) 6N.2; GLUCOSE,POINT OF CARE 182 MG/DL (70-110)
[2019-07-29 17:36] LABS: GLUCOMETER DEV NAME(LOC) 6N.2; GLUCOSE,POINT OF CARE 181 MG/DL (70-110)
[2019-07-29 20:00] VITALS: BP 135/85
[2019-07-29 20:28] LABS: GLUCOMETER DEV NAME(LOC) 6N.2; GLUCOSE,POINT OF CARE 194 MG/DL (70-110)
[2019-07-30] VITALS (7 sets, daily range): BP systolic 130–151; BP diastolic 69–84
[2019-07-30] MEDS: ELTROMBOPAG OLAMINE 50 MG PO SCH (05:33)
[2019-07-30] MEDS: INSULIN LISPRO 100 UNITS/ML SQ PRN ×4 (05:36→21:27)
[2019-07-30 06:03] LABS: GLUCOMETER DEV NAME(LOC) 6N.2; GLUCOSE,POINT OF CARE 157 MG/DL (70-110)
[2019-07-30 07:10] LABS: BASOPHILS % (AUTO) 0.7 % (0.0-2.0); HEMATOCRIT 23.4 % (36-46); HEMOGLOBIN 7.7 g/dL (12.0-16.0); LYMPHOCYTES # (AUTO) 0.7 K/uL (1.0-4.8); LYMPHOCYTES % (AUTO) 11.4 % (22.0-44.0); MEAN CORPUSCULAR HEMOGLOBIN 28.5 pg (26.0-34.0); MEAN CORPUSCULAR HGB CONC 32.8 G/dL (31.0-37.0); MEAN CORPUSCULAR VOLUME 87 fL (80-100); MONOCYTES # (AUTO) 0.7 K/uL (0.1-1.0); MONOCYTES % (AUTO) 10.4 % (2.0-9.0); NEUTROPHILS # (AUTO) 4.4 K/uL (1.8-7.7); NEUTROPHILS % (AUTO) 69.5 % (40.0-70.0); RED BLOOD CELL COUNT(AUTO) 2.69 MIL/uL (4.00-5.20); RED CELL DISTRIBUTION WIDTH 19.6 % (11.5-14.5)
[2019-07-30 07:29] LABS: PLATELET COUNT (AUTO) 36 K/uL (150-450)
[2019-07-30 07:38] LABS: ALBUMIN 1.7 g/dL (3.4-5.0); BILIRUBIN,TOTAL 0.3 mg/dL (0.1-1.0); CALCIUM, TOTAL 8.3 mg/dL (8.8-10.5); CREATININE 2.44 mg/dL (0.60-1.30); POTASSIUM 4.3 mmol/L (3.5-5.1); TOTAL PROTEIN, SERUM 5.6 g/dL (6.4-8.2)
[2019-07-30] MEDS: SEVELAMER CARBONATE 800 MG TABLET PO SCH ×3 (08:08→17:39)
[2019-07-30] MEDS: GABAPENTIN 300 MG CAPSULE PO SCH ×3 (08:08→21:26)
[2019-07-30] MEDS: ATORVASTATIN CALCIUM 40 MG TABLET PO SCH (08:09)
[2019-07-30] MEDS: FUROSEMIDE 20 MG TABLET PO SCH (08:09)
[2019-07-30] MEDS: ASPIRIN 81 MG CHEWABLE TABLET PO SCH (08:09)
[2019-07-30] MEDS: LevETIRAcetam 500 MG TABLET PO SCH ×2 (08:11→21:26)
[2019-07-30] MEDS: CeFAZolin 1 GM/DEXTROSE 50 ML IV SCH ×2 (08:13→21:26)
[2019-07-30] MEDS: DOCUSATE SODIUM 100 MG CAPSULE PO SCH ×2 (08:16→21:26)
[2019-07-30 20:26] LABS: GLUCOMETER DEV NAME(LOC) 6N.2; GLUCOSE,POINT OF CARE 283 MG/DL (70-110)
[2019-07-30 22:23] LABS: GLUCOMETER DEV NAME(LOC) 6N.1; GLUCOSE,POINT OF CARE 156 MG/DL (70-110)
[2019-07-31 04:30] VITALS: BP 141/72
[2019-07-31 05:08] LABS: GLUCOMETER DEV NAME(LOC) 6N.2; GLUCOSE,POINT OF CARE 90 MG/DL (70-110)
[2019-07-31] MEDS: ELTROMBOPAG OLAMINE 50 MG PO SCH (06:05)
[2019-07-31] MEDS: INSULIN LISPRO 100 UNITS/ML SQ PRN ×4 (06:08→20:46)
[2019-07-31 07:06] LABS: GLUCOMETER DEV NAME(LOC) 6N.2; GLUCOSE,POINT OF CARE 119 MG/DL (70-110)
[2019-07-31 07:53] VITALS: BP 147/89
[2019-07-31 08:18] LABS: BASOPHILS % (AUTO) 0.7 % (0.0-2.0); EOSINOPHILS % (AUTO) 6.1 % (1.0-6.0); HEMATOCRIT 25.3 % (36-46); HEMOGLOBIN 8.2 g/dL (12.0-16.0); LYMPHOCYTES # (AUTO) 0.8 K/uL (1.0-4.8); MEAN CORPUSCULAR HEMOGLOBIN 28.4 pg (26.0-34.0); MEAN CORPUSCULAR HGB CONC 32.4 G/dL (31.0-37.0); MEAN CORPUSCULAR VOLUME 88 fL (80-100); MONOCYTES # (AUTO) 0.5 K/uL (0.1-1.0); MONOCYTES % (AUTO) 7.5 % (2.0-9.0); NEUTROPHILS # (AUTO) 4.6 K/uL (1.8-7.7); NEUTROPHILS % (AUTO) 72.7 % (40.0-70.0); PLATELET COUNT (AUTO) 51 K/uL (150-450); RED BLOOD CELL COUNT(AUTO) 2.89 MIL/uL (4.00-5.20); RED CELL DISTRIBUTION WIDTH 20.3 % (11.5-14.5)
[2019-07-31 08:32] LABS: ALBUMIN 1.9 g/dL (3.4-5.0); BILIRUBIN,TOTAL 0.3 mg/dL (0.1-1.0); CALCIUM, TOTAL 8.5 mg/dL (8.8-10.5); CREATININE 2.36 mg/dL (0.60-1.30); POTASSIUM 4.2 mmol/L (3.5-5.1); TOTAL PROTEIN, SERUM 5.8 g/dL (6.4-8.2)
[2019-07-31] MEDS: CeFAZolin 1 GM/DEXTROSE 50 ML IV SCH ×2 (08:40→20:39)
[2019-07-31] MEDS: SEVELAMER CARBONATE 800 MG TABLET PO SCH ×3 (08:41→16:58)
[2019-07-31] MEDS: LevETIRAcetam 500 MG TABLET PO SCH ×2 (08:41→20:39)
[2019-07-31] MEDS: LEVOFLOXACIN 250 MG TABLET PO SCH (08:41)
[2019-07-31] MEDS: ASPIRIN 81 MG CHEWABLE TABLET PO SCH (08:41)
[2019-07-31] MEDS: GABAPENTIN 300 MG CAPSULE PO SCH ×3 (08:41→20:39)
[2019-07-31] MEDS: ATORVASTATIN CALCIUM 40 MG TABLET PO SCH (08:41)
[2019-07-31] MEDS: DOCUSATE SODIUM 100 MG CAPSULE PO SCH ×2 (08:41→20:49)
[2019-07-31] MEDS: FUROSEMIDE 20 MG TABLET PO SCH (08:41)
[2019-07-31] MEDS ORDERED: FUROSEMIDE 40 MG/4 ML VIAL IVP ONE (10:30)
[2019-07-31 11:28] VITALS: BP 147/80
[2019-07-31 12:16] LABS: GLUCOMETER DEV NAME(LOC) 6N.2; GLUCOSE,POINT OF CARE 153 MG/DL (70-110)
[2019-07-31 15:08] VITALS: BP 140/78
[2019-07-31 17:16] LABS: GLUCOMETER DEV NAME(LOC) 6N.2; GLUCOSE,POINT OF CARE 137 MG/DL (70-110)
[2019-07-31] MEDS ORDERED: SODIUM CL IRRIG SOLN BOTTLE 250 ML IRRIG ONE (17:25)
[2019-07-31 19:50] VITALS: BP 153/81
[2019-07-31] MEDS ORDERED: CeFAZolin 2 GM/DEXTROSE 50 ML IV SCH (20:00)
[2019-07-31] MEDS ORDERED: CeFAZolin 1 GM/DEXTROSE 50 ML IV SCH (20:00)
[2019-07-31 21:39] LABS: GLUCOMETER DEV NAME(LOC) 6N.2; GLUCOSE,POINT OF CARE 206 MG/DL (70-110)
[2019-07-31 23:50] VITALS: BP 143/77
[2019-08-01] VITALS (7 sets, daily range): BP systolic 141–156; BP diastolic 70–94
[2019-08-01 06:13] LABS: GLUCOMETER DEV NAME(LOC) 6N.2; GLUCOSE,POINT OF CARE 127 MG/DL (70-110)
[2019-08-01] MEDS: ELTROMBOPAG OLAMINE 50 MG PO SCH (06:17)
[2019-08-01] MEDS: INSULIN LISPRO 100 UNITS/ML SQ PRN ×4 (06:18→21:06)
[2019-08-01] MEDS: DOCUSATE SODIUM 100 MG CAPSULE PO SCH ×2 (08:53→21:05)
[2019-08-01] MEDS: CeFAZolin 1 GM/DEXTROSE 50 ML IV SCH ×2 (08:53→21:05)
[2019-08-01] MEDS: LevETIRAcetam 500 MG TABLET PO SCH ×2 (08:53→21:05)
[2019-08-01] MEDS: SEVELAMER CARBONATE 800 MG TABLET PO SCH ×3 (08:54→17:55)
[2019-08-01] MEDS: ASPIRIN 81 MG CHEWABLE TABLET PO SCH (08:54)
[2019-08-01] MEDS: FUROSEMIDE 20 MG TABLET PO SCH (08:54)
[2019-08-01] MEDS: ATORVASTATIN CALCIUM 40 MG TABLET PO SCH (08:54)
[2019-08-01] MEDS: GABAPENTIN 300 MG CAPSULE PO SCH ×3 (08:54→21:05)
[2019-08-01 13:22] LABS: GLUCOMETER DEV NAME(LOC) 6N.2; GLUCOSE,POINT OF CARE 224 MG/DL (70-110)
[2019-08-01 17:58] LABS: GLUCOMETER DEV NAME(LOC) 6N.2; GLUCOSE,POINT OF CARE 157 MG/DL (70-110)
[2019-08-01 21:30] LABS: GLUCOMETER DEV NAME(LOC) 6N.2; GLUCOSE,POINT OF CARE 162 MG/DL (70-110)
[2019-08-02 04:22] VITALS: BP 140/81
[2019-08-02] MEDS: ELTROMBOPAG OLAMINE 50 MG PO SCH (06:06)
[2019-08-02] MEDS: INSULIN LISPRO 100 UNITS/ML SQ PRN ×4 (06:07→20:31)
[2019-08-02 06:39] LABS: GLUCOMETER DEV NAME(LOC) 6N.2; GLUCOSE,POINT OF CARE 138 MG/DL (70-110)
[2019-08-02 08:27] VITALS: BP 127/77
[2019-08-02] MEDS: CeFAZolin 1 GM/DEXTROSE 50 ML IV SCH ×2 (08:49→20:27)
[2019-08-02] MEDS: ASPIRIN 81 MG CHEWABLE TABLET PO SCH (08:51)
[2019-08-02] MEDS: DOCUSATE SODIUM 100 MG CAPSULE PO SCH ×2 (08:51→20:27)
[2019-08-02] MEDS: LevETIRAcetam 500 MG TABLET PO SCH ×2 (08:51→20:27)
[2019-08-02] MEDS: FUROSEMIDE 20 MG TABLET PO SCH (08:51)
[2019-08-02] MEDS: LEVOFLOXACIN 250 MG TABLET PO SCH (08:52)
[2019-08-02] MEDS: SEVELAMER CARBONATE 800 MG TABLET PO SCH ×3 (08:52→17:41)
[2019-08-02] MEDS: ATORVASTATIN CALCIUM 40 MG TABLET PO SCH (08:52)
[2019-08-02] MEDS: GABAPENTIN 300 MG CAPSULE PO SCH ×3 (08:52→20:27)
[2019-08-02 11:53] VITALS: BP 143/88
[2019-08-02 12:10] LABS: GLUCOMETER DEV NAME(LOC) 6N.2; GLUCOSE,POINT OF CARE 161 MG/DL (70-110)
[2019-08-02 16:33] VITALS: BP 151/87
[2019-08-02 17:32] LABS: GLUCOMETER DEV NAME(LOC) 6N.2; GLUCOSE,POINT OF CARE 232 MG/DL (70-110)
[2019-08-02 19:30] VITALS: BP 152/97
[2019-08-02 23:49] LABS: GLUCOMETER DEV NAME(LOC) 6N.2; GLUCOSE,POINT OF CARE 145 MG/DL (70-110)
[2019-08-03 00:16] VITALS: BP 142/81
[2019-08-03 04:20] VITALS: BP 145/82
[2019-08-03] MEDS: ELTROMBOPAG OLAMINE 50 MG PO SCH (05:53)
[2019-08-03] MEDS: INSULIN LISPRO 100 UNITS/ML SQ PRN ×2 (05:53→12:18)
[2019-08-03 07:43] VITALS: BP 122/70
[2019-08-03] MEDS: FUROSEMIDE 20 MG TABLET PO SCH (08:03)
[2019-08-03] MEDS: DOCUSATE SODIUM 100 MG CAPSULE PO SCH (08:03)
[2019-08-03] MEDS: LevETIRAcetam 500 MG TABLET PO SCH (08:03)
[2019-08-03] MEDS: SEVELAMER CARBONATE 800 MG TABLET PO SCH ×3 (08:03→17:47)
[2019-08-03] MEDS: ASPIRIN 81 MG CHEWABLE TABLET PO SCH (08:03)
[2019-08-03] MEDS: GABAPENTIN 300 MG CAPSULE PO SCH ×2 (08:03→16:56)
[2019-08-03] MEDS: ATORVASTATIN CALCIUM 40 MG TABLET PO SCH (08:03)
[2019-08-03] MEDS: CeFAZolin 1 GM/DEXTROSE 50 ML IV SCH ×2 (08:07→18:26)
[2019-08-03 11:45] VITALS: BP 142/83
[2019-08-03] MEDS ORDERED: LEVO250T75 PO (14:32)
[2019-08-03] MEDS ORDERED: CEFA1IV IV (14:33)
[2019-08-03] MEDS ORDERED: FUROSEMIDE 40 MG/4 ML VIAL IVP ONE (16:45)
[2019-08-03 17:57] LABS: GLUCOMETER DEV NAME(LOC) 6N.2; GLUCOSE,POINT OF CARE 180 MG/DL (70-110)
[2019-08-03 17:57] LABS: GLUCOMETER DEV NAME(LOC) 6N.2; GLUCOSE,POINT OF CARE 112 MG/DL (70-110)
[2019-08-04] MEDS ORDERED: FUROSEMIDE 40 MG TABLET PO SCH (09:00)
== END 2019-08-03 19:15 | disposition home health service (06) | DRG 314 ==
LOC: EMS 12:12 → 6N 15:42
PROVIDERS: ADMIT Hospitalist; ATTEND Hospitalist
PROC: 0Y6X0Z0 Detachment at Right 5th Toe, Complete, Open Approach (ICD-10-PCS; 2019-07-25)
PROC: 0Y6V0Z0 Detachment at Right 4th Toe, Complete, Open Approach (ICD-10-PCS; principal; 2019-07-25 08:00)
PROC: 30233R1 Transfusion of Nonautologous Platelets into Peripheral Vein, Percutaneous Approach (ICD-10-PCS; 2019-07-28)
PROC: 02HV33Z Insertion of Infusion Device into Superior Vena Cava, Percutaneous Approach (ICD-10-PCS; 2019-07-28)
PROC: B5181ZA Fluoroscopy of Superior Vena Cava using Low Osmolar Contrast, Guidance (ICD-10-PCS; 2019-07-28)
PROC: B548ZZA Ultrasonography of Superior Vena Cava, Guidance (ICD-10-PCS; 2019-07-28)
DX: E11.69 Type 2 diabetes mellitus with other specified complication (principal); N17.0 Acute kidney failure with tubular necrosis; E43 Unspecified severe protein-calorie malnutrition; D69.3 Immune thrombocytopenic purpura; D69.6 Thrombocytopenia, unspecified; E11.22 Type 2 diabetes mellitus with diabetic chronic kidney disease; E11.40 Type 2 diabetes mellitus with diabetic neuropathy, unspecified; N18.3 Chronic kidney disease, stage 3 (moderate); E87.5 Hyperkalemia; M86.8X7 Other osteomyelitis, ankle and foot; E11.621 Type 2 diabetes mellitus with foot ulcer; E11.319 Type 2 diabetes mellitus with unspecified diabetic retinopathy without macular edema; I50.9 Heart failure, unspecified; I13.0 Hypertensive heart and chronic kidney disease with heart failure and stage 1 through stage 4 chronic kidney disease, or unspecified chronic kidney disease; N13.30 Unspecified hydronephrosis; B95.61 Methicillin susceptible Staphylococcus aureus infection as the cause of diseases classified elsewhere; B96.5 Pseudomonas (aeruginosa) (mallei) (pseudomallei) as the cause of diseases classified elsewhere; E78.5 Hyperlipidemia, unspecified; D64.9 Anemia, unspecified; E83.39 Other disorders of phosphorus metabolism; L97.519 Non-pressure chronic ulcer of other part of right foot with unspecified severity; F17.210 Nicotine dependence, cigarettes, uncomplicated; K80.20 Calculus of gallbladder without cholecystitis without obstruction; Z68.28 Body mass index [BMI] 28.0-28.9, adult; Z79.82 Long term (current) use of aspirin; Z79.84 Long term (current) use of oral hypoglycemic drugs; Z79.899 Other long term (current) drug therapy; Z83.3 Family history of diabetes mellitus; Z86.73 Personal history of transient ischemic attack (TIA), and cerebral infarction without residual deficits; Z98.891 History of uterine scar from previous surgery
CPT/HCPCS: 36569; 76770; 76937; 82570; 83036; 83605; 83735; 84100; 84132; 84300; 84540; 86900; 86901; 87040; 87070; 87086; 87205; 88305; 88311; J0690; J1644; J1885; J1940; J2250; J2543; J2704; J3010; J3370; J3490; J7030; J7040; J7060; P9035

== ENCOUNTER 2019-08-20 18:12 | Inpatient (IN) | payer MEDICAID ==
[~2019-08-20] VITALS: Ht 162.6 cm; Wt 76.2 kg
[~2019-08-20 18:12] MED LIST changes: +CEFA1IV IV; +LEVO250T75 PO; -SULF1TAB42 PO
[2019-08-20 18:30] LABS: GLUCOSE,POINT OF CARE 209 MG/DL (70-110)
[2019-08-20 19:55] LABS: BASOPHILS % (AUTO) 0.9 % (0.0-2.0); EOSINOPHILS % (AUTO) 4.6 % (1.0-6.0); HEMATOCRIT 30.5 % (36-46); HEMOGLOBIN 9.7 g/dL (12.0-16.0); LYMPHOCYTES # (AUTO) 0.6 K/uL (1.0-4.8); MEAN CORPUSCULAR HEMOGLOBIN 27.6 pg (26.0-34.0); MEAN CORPUSCULAR HGB CONC 31.9 G/dL (31.0-37.0); MEAN CORPUSCULAR VOLUME 86 fL (80-100); MONOCYTES # (AUTO) 0.5 K/uL (0.1-1.0); MONOCYTES % (AUTO) 11.3 % (2.0-9.0); NEUTROPHILS # (AUTO) 3.4 K/uL (1.8-7.7); NEUTROPHILS % (AUTO) 70.2 % (40.0-70.0); RED BLOOD CELL COUNT(AUTO) 3.54 MIL/uL (4.00-5.20); RED CELL DISTRIBUTION WIDTH 18.3 % (11.5-14.5)
[2019-08-20 20:09] LABS: CALCIUM, TOTAL 8.4 mg/dL (8.8-10.5); CREATININE 1.96 mg/dL (0.60-1.30); POTASSIUM 5.1 mmol/L (3.5-5.1)
[2019-08-20 20:15] LABS: BILIRUBIN,TOTAL 0.2 mg/dL (0.1-1.0); TOTAL PROTEIN, SERUM 5.8 g/dL (6.4-8.2)
[2019-08-20 20:26] LABS: PLATELET COUNT (AUTO) 32 K/uL (150-450)
[2019-08-20] MEDS ORDERED: MORPHINE SULFATE 4 MG/ML SYRINGE IVP ONE (22:45)
[2019-08-21] MEDS ORDERED: BISACODYL 10 MG RECTAL RECTAL SUPPOSITORY PR PRN
[2019-08-21] MEDS ORDERED: HYDROCODONE/ACETAMINOPHEN 5-325 MG TABLET PO PRN
[2019-08-21] MEDS ORDERED: MORPHINE SULFATE 2 MG/ML SYRINGE IVP PRN
[2019-08-21] MEDS ORDERED: ZOLPIDEM TARTRATE 5 MG TABLET PO PRN
[2019-08-21] MEDS ORDERED: MAGNESIUM HYDROXIDE SUSPENSION 30 ML UDCUP PO PRN
[2019-08-21] MEDS ORDERED: DEXTROSE 50%-WATER 25 GM/50 ML SYRINGE IVP PRN
[2019-08-21] MEDS ORDERED: ONDANSETRON HCL 4 MG/2 ML VIAL IVP PRN ×2 (00:15)
[2019-08-21] MEDS ORDERED: 0.9% SODIUM CHLORIDE 10 ML SYRINGE IVP PRN (00:15)
[2019-08-21] MEDS ORDERED: ACETAMINOPHEN 325 MG TABLET PO PRN ×2 (00:15)
[2019-08-21] MEDS ORDERED: FUROSEMIDE 40 MG/4 ML VIAL IVP ONE (00:15)
[2019-08-21 01:36] VITALS: BP 153/87
[2019-08-21 03:59] VITALS: BP 150/80
[2019-08-21] MEDS ORDERED: PNEUMOCOCCAL VACCINE POLYVALENT 0.5 ML VIAL [PPSV23] IM ONE (04:45)
[2019-08-21] MEDS: INSULIN LISPRO 100 UNITS/ML SQ PRN ×3 (06:35→22:18)
[2019-08-21] MEDS: HEPARIN SODIUM,PORCINE 5,000 UNITS/ML VIAL SQ SCH ×4 (08:00→22:35)
[2019-08-21 09:00] VITALS: BP 148/89
[2019-08-21] MEDS ORDERED: FUROSEMIDE 20 MG/2 ML VIAL IVP SCH ×2 (09:00)
[2019-08-21] MEDS ORDERED: LISINOPRIL 5 MG TABLET PO SCH (09:00)
[2019-08-21] MEDS: ASPIRIN 81 MG EC TABLET PO SCH (09:29)
[2019-08-21] MEDS: DOCUSATE SODIUM 100 MG CAPSULE PO SCH ×2 (09:29→21:29)
[2019-08-21] MEDS: CARVEDILOL 6.25 MG TABLET PO SCH ×2 (09:29→21:29)
[2019-08-21] MEDS: PANTOPRAZOLE SODIUM 40 MG DR TABLET PO SCH (09:29)
[2019-08-21] MEDS ORDERED: CeFAZolin 1 GM/DEXTROSE 50 ML BAG IV SCH ×2 (11:00)
[2019-08-21 11:13] VITALS: BP 149/85
[2019-08-21] MEDS ORDERED: SODIUM CHLORIDE 0.9% 250 ML IV ONE (12:19)
[2019-08-21] MEDS: CeFAZolin 1 GM/DEXTROSE 50 ML IV SCH ×2 (12:24→23:12)
[2019-08-21] MEDS: HydrALAZINE HCL 25 MG TABLET PO SCH ×2 (12:24→21:29)
[2019-08-21 15:39] VITALS: BP 150/82
[2019-08-21 19:49] VITALS: BP 151/78
[2019-08-21] MEDS: FUROSEMIDE 40 MG/4 ML VIAL IVP SCH (21:29)
[2019-08-21] MEDS: ELTROMBOPAG OLAMINE 75 MG PO SCH (23:09)
[2019-08-22 00:27] VITALS: BP 136/76
[2019-08-22 04:19] VITALS: BP 128/72
[2019-08-22 07:04] LABS: CREATININE 1.82 mg/dL (0.60-1.30)
[2019-08-22 07:19] VITALS: BP 152/81
[2019-08-22] MEDS: HEPARIN SODIUM,PORCINE 5,000 UNITS/ML VIAL SQ SCH ×3 (08:00→15:38)
[2019-08-22] MEDS: FUROSEMIDE 40 MG/4 ML VIAL IVP SCH ×2 (08:26→21:12)
[2019-08-22] MEDS: ELTROMBOPAG OLAMINE 75 MG PO SCH (08:26)
[2019-08-22] MEDS: HydrALAZINE HCL 25 MG TABLET PO SCH ×2 (08:26→21:12)
[2019-08-22] MEDS: CARVEDILOL 6.25 MG TABLET PO SCH ×2 (08:27→21:12)
[2019-08-22] MEDS: DOCUSATE SODIUM 100 MG CAPSULE PO SCH ×2 (08:27→21:12)
[2019-08-22] MEDS: PANTOPRAZOLE SODIUM 40 MG DR TABLET PO SCH (08:28)
[2019-08-22] MEDS: ASPIRIN 81 MG EC TABLET PO SCH (08:28)
[2019-08-22] MEDS ORDERED: LOSARTAN POTASSIUM 50 MG TABLET PO SCH (09:00)
[2019-08-22] MEDS: CeFAZolin 1 GM/DEXTROSE 50 ML IV SCH ×2 (11:00→22:48)
[2019-08-22 11:54] VITALS: BP 119/68
[2019-08-22] MEDS: INSULIN LISPRO 100 UNITS/ML SQ PRN ×3 (12:57→21:14)
[2019-08-22 15:58] VITALS: BP 129/76
[2019-08-22 19:25] VITALS: BP 137/72
[2019-08-23 00:37] VITALS: BP 133/77
[2019-08-23 04:14] VITALS: BP 124/67
[2019-08-23] MEDS: INSULIN LISPRO 100 UNITS/ML SQ PRN ×4 (06:26→21:44)
[2019-08-23 06:33] LABS: BASOPHILS % (AUTO) 0.7 % (0.0-2.0); EOSINOPHILS % (AUTO) 5.3 % (1.0-6.0); HEMATOCRIT 26.7 % (36-46); HEMOGLOBIN 8.5 g/dL (12.0-16.0); LYMPHOCYTES # (AUTO) 0.9 K/uL (1.0-4.8); LYMPHOCYTES % (AUTO) 21.1 % (22.0-44.0); MEAN CORPUSCULAR HEMOGLOBIN 27.3 pg (26.0-34.0); MEAN CORPUSCULAR HGB CONC 31.9 G/dL (31.0-37.0); MEAN CORPUSCULAR VOLUME 86 fL (80-100); MONOCYTES # (AUTO) 0.4 K/uL (0.1-1.0); MONOCYTES % (AUTO) 10.2 % (2.0-9.0); NEUTROPHILS # (AUTO) 2.6 K/uL (1.8-7.7); NEUTROPHILS % (AUTO) 62.7 % (40.0-70.0); RED BLOOD CELL COUNT(AUTO) 3.12 MIL/uL (4.00-5.20)
[2019-08-23 06:47] LABS: CALCIUM, TOTAL 8.6 mg/dL (8.8-10.5); CREATININE 2.3 mg/dL (0.60-1.30); MAGNESIUM 2.4 mg/dL (1.80-2.40)
[2019-08-23 06:54] LABS: PLATELET COUNT (AUTO) 17 K/uL (150-450)
[2019-08-23 07:20] VITALS: BP 138/73
[2019-08-23] MEDS: HEPARIN SODIUM,PORCINE 5,000 UNITS/ML VIAL SQ SCH ×2 (08:00)
[2019-08-23] MEDS: CARVEDILOL 6.25 MG TABLET PO SCH ×2 (08:05→20:47)
[2019-08-23] MEDS: DOCUSATE SODIUM 100 MG CAPSULE PO SCH ×2 (08:05→20:47)
[2019-08-23] MEDS: ASPIRIN 81 MG EC TABLET PO SCH (08:06)
[2019-08-23] MEDS: ELTROMBOPAG OLAMINE 75 MG PO SCH (08:06)
[2019-08-23] MEDS: PANTOPRAZOLE SODIUM 40 MG DR TABLET PO SCH (08:06)
[2019-08-23] MEDS: HydrALAZINE HCL 25 MG TABLET PO SCH ×2 (08:06→20:47)
[2019-08-23] MEDS: FUROSEMIDE 40 MG/4 ML VIAL IVP SCH (08:07)
[2019-08-23] MEDS ORDERED: FUROSEMIDE 40 MG/4 ML VIAL IVP SCH (09:00)
[2019-08-23] MEDS ORDERED: *CLINICAL-LEVOFLOXACIN IVPB DOSING CLINICAL ONE (11:00)
[2019-08-23 11:10] VITALS: BP_SYST 131; BP_SYST 136; BP_DIAS 69; BP_DIAS 72
[2019-08-23] MEDS ORDERED: SODIUM CL IRRIG SOLN BOTTLE 250 ML IRRIG ONE (12:11)
[2019-08-23] MEDS: PredniSONE 20 MG TABLET PO SCH (12:19)
[2019-08-23] MEDS: CLINDAMYCIN 600 MG/D5% WATER 50 ML IV SCH ×2 (12:37→18:16)
[2019-08-23] MEDS: LEVOFLOXACIN 750 MG/D5% WATER 150 ML IV SCH (13:10)
[2019-08-23 16:15] VITALS: BP 155/91
[2019-08-23 20:14] VITALS: BP 160/90
[2019-08-24] VITALS (7 sets, daily range): BP systolic 133–162; BP diastolic 75–92
[2019-08-24] MEDS: CLINDAMYCIN 600 MG/D5% WATER 50 ML IV SCH ×3 (03:34→18:08)
[2019-08-24 06:18] LABS: BASOPHILS % (AUTO) 0.7 % (0.0-2.0); EOSINOPHILS % (AUTO) 0.4 % (1.0-6.0); HEMATOCRIT 27.3 % (36-46); HEMOGLOBIN 8.9 g/dL (12.0-16.0); LYMPHOCYTES # (AUTO) 0.6 K/uL (1.0-4.8); LYMPHOCYTES % (AUTO) 11.8 % (22.0-44.0); MEAN CORPUSCULAR HEMOGLOBIN 27.2 pg (26.0-34.0); MEAN CORPUSCULAR HGB CONC 32.4 G/dL (31.0-37.0); MEAN CORPUSCULAR VOLUME 84 fL (80-100); MONOCYTES # (AUTO) 0.6 K/uL (0.1-1.0); MONOCYTES % (AUTO) 10.9 % (2.0-9.0); NEUTROPHILS # (AUTO) 4.1 K/uL (1.8-7.7); NEUTROPHILS % (AUTO) 76.2 % (40.0-70.0); RED BLOOD CELL COUNT(AUTO) 3.25 MIL/uL (4.00-5.20); RED CELL DISTRIBUTION WIDTH 17.1 % (11.5-14.5)
[2019-08-24 06:30] LABS: CALCIUM, TOTAL 8.7 mg/dL (8.8-10.5); CREATININE 2.25 mg/dL (0.60-1.30); MAGNESIUM 2.2 mg/dL (1.80-2.40); PHOSPHORUS 4.7 mg/dL (2.5-4.9); POTASSIUM 4.8 mmol/L (3.5-5.1)
[2019-08-24] MEDS: INSULIN LISPRO 100 UNITS/ML SQ PRN ×4 (06:51→20:30)
[2019-08-24] MEDS: PredniSONE 20 MG TABLET PO SCH (08:02)
[2019-08-24] MEDS: DOCUSATE SODIUM 100 MG CAPSULE PO SCH ×2 (08:02→20:19)
[2019-08-24] MEDS: HydrALAZINE HCL 25 MG TABLET PO SCH ×2 (08:02→20:18)
[2019-08-24] MEDS: ELTROMBOPAG OLAMINE 75 MG PO SCH (08:02)
[2019-08-24] MEDS: PANTOPRAZOLE SODIUM 40 MG DR TABLET PO SCH (08:03)
[2019-08-24] MEDS: ASPIRIN 81 MG EC TABLET PO SCH (08:03)
[2019-08-24 08:05] LABS: PLATELET COUNT (AUTO) 16 K/uL (150-450)
[2019-08-24] MEDS: CARVEDILOL 6.25 MG TABLET PO SCH ×2 (08:05→21:30)
[2019-08-24] MEDS ORDERED: FUROSEMIDE 40 MG/4 ML VIAL IVP SCH (09:00)
[2019-08-24] MEDS: BUMETANIDE 0.25 MG/ML 10 ML VIAL IV SCH ×2 (10:34→20:18)
[2019-08-25] MEDS: CLINDAMYCIN 600 MG/D5% WATER 50 ML IV SCH ×3 (02:17→18:11)
[2019-08-25 04:27] VITALS: BP 125/71
[2019-08-25] MEDS: INSULIN LISPRO 100 UNITS/ML SQ PRN ×4 (06:09→20:56)
[2019-08-25 06:32] LABS: BASOPHILS % (AUTO) 1.3 % (0.0-2.0); EOSINOPHILS % (AUTO) 2.8 % (1.0-6.0); HEMATOCRIT 27.4 % (36-46); HEMOGLOBIN 9.2 g/dL (12.0-16.0); LYMPHOCYTES # (AUTO) 0.9 K/uL (1.0-4.8); LYMPHOCYTES % (AUTO) 17.8 % (22.0-44.0); MEAN CORPUSCULAR HEMOGLOBIN 28.4 pg (26.0-34.0); MEAN CORPUSCULAR HGB CONC 33.7 G/dL (31.0-37.0); MEAN CORPUSCULAR VOLUME 84 fL (80-100); MONOCYTES # (AUTO) 0.5 K/uL (0.1-1.0); MONOCYTES % (AUTO) 11.1 % (2.0-9.0); NEUTROPHILS # (AUTO) 3.3 K/uL (1.8-7.7); RED BLOOD CELL COUNT(AUTO) 3.26 MIL/uL (4.00-5.20); RED CELL DISTRIBUTION WIDTH 17.3 % (11.5-14.5)
[2019-08-25 07:06] LABS: PLATELET COUNT (AUTO) 15 K/uL (150-450)
[2019-08-25 07:37] VITALS: BP 124/73
[2019-08-25] MEDS: CARVEDILOL 6.25 MG TABLET PO SCH ×2 (08:00→20:05)
[2019-08-25] MEDS: DOCUSATE SODIUM 100 MG CAPSULE PO SCH ×2 (08:00→20:05)
[2019-08-25] MEDS: ELTROMBOPAG OLAMINE 75 MG PO SCH (08:00)
[2019-08-25] MEDS: ASPIRIN 81 MG EC TABLET PO SCH (08:00)
[2019-08-25] MEDS: PANTOPRAZOLE SODIUM 40 MG DR TABLET PO SCH (08:00)
[2019-08-25] MEDS: HydrALAZINE HCL 25 MG TABLET PO SCH ×2 (08:00→20:05)
[2019-08-25] MEDS: PredniSONE 20 MG TABLET PO SCH (08:00)
[2019-08-25] MEDS: BUMETANIDE 0.25 MG/ML 10 ML VIAL IV SCH (08:01)
[2019-08-25] MEDS: MULTIVITAMINS WITH MINERALS, THERAPEUTIC TABLET PO SCH (10:22)
[2019-08-25 11:08] VITALS: BP 120/68
[2019-08-25] MEDS ORDERED: SODIUM CHLORIDE 0.9% 250 ML IV ONE (11:25)
[2019-08-25] MEDS: LEVOFLOXACIN 750 MG/D5% WATER 150 ML IV SCH (11:29)
[2019-08-25 11:50] LABS: GLUCOMETER DEV NAME(LOC) 5N.1; GLUCOSE,POINT OF CARE 135 MG/DL (70-110)
[2019-08-25 11:50] LABS: GLUCOMETER DEV NAME(LOC) 5N.1; GLUCOSE,POINT OF CARE 157 MG/DL (70-110)
[2019-08-25 11:51] LABS: GLUCOMETER DEV NAME(LOC) 5N.1; GLUCOSE,POINT OF CARE 388 MG/DL (70-110)
[2019-08-25 11:51] LABS: GLUCOMETER DEV NAME(LOC) 5N.1; GLUCOSE,POINT OF CARE 287 MG/DL (70-110)
[2019-08-25 11:51] LABS: GLUCOMETER DEV NAME(LOC) 5N.1; GLUCOSE,POINT OF CARE 402 MG/DL (70-110)
[2019-08-25 11:51] LABS: GLUCOMETER DEV NAME(LOC) 5N.1; GLUCOSE,POINT OF CARE 303 MG/DL (70-110)
[2019-08-25 11:51] LABS: GLUCOMETER DEV NAME(LOC) 5N.1; GLUCOSE,POINT OF CARE 181 MG/DL (70-110)
[2019-08-25 11:51] LABS: GLUCOMETER DEV NAME(LOC) 5N.1; GLUCOSE,POINT OF CARE 131 MG/DL (70-110)
[2019-08-25 11:51] LABS: GLUCOMETER DEV NAME(LOC) 5N.1; GLUCOSE,POINT OF CARE 242 MG/DL (70-110)
[2019-08-25 11:51] LABS: GLUCOMETER DEV NAME(LOC) 5N.1; GLUCOSE,POINT OF CARE 211 MG/DL (70-110)
[2019-08-25 11:51] LABS: GLUCOMETER DEV NAME(LOC) 5N.1; GLUCOSE,POINT OF CARE 188 MG/DL (70-110)
[2019-08-25 12:03] LABS: GLUCOMETER DEV NAME(LOC) 5S.1; GLUCOSE,POINT OF CARE 125 MG/DL (70-110)
[2019-08-25 12:03] LABS: GLUCOMETER DEV NAME(LOC) 5S.1; GLUCOSE,POINT OF CARE 200 MG/DL (70-110)
[2019-08-25 12:04] LABS: GLUCOMETER DEV NAME(LOC) 5S.1; GLUCOSE,POINT OF CARE 200 MG/DL (70-110)
[2019-08-25 12:04] LABS: GLUCOMETER DEV NAME(LOC) 5S.1; GLUCOSE,POINT OF CARE 294 MG/DL (70-110)
[2019-08-25 12:04] LABS: GLUCOMETER DEV NAME(LOC) 5S.1; GLUCOSE,POINT OF CARE 227 MG/DL (70-110)
[2019-08-25 12:04] LABS: GLUCOMETER DEV NAME(LOC) 5S.1; GLUCOSE,POINT OF CARE 274 MG/DL (70-110)
[2019-08-25 12:04] LABS: GLUCOMETER DEV NAME(LOC) 5S.1; GLUCOSE,POINT OF CARE 334 MG/DL (70-110)
[2019-08-25 12:04] LABS: GLUCOMETER DEV NAME(LOC) 5S.1; GLUCOSE,POINT OF CARE 169 MG/DL (70-110)
[2019-08-25 12:04] LABS: GLUCOMETER DEV NAME(LOC) 5S.1; GLUCOSE,POINT OF CARE 421 MG/DL (70-110)
[2019-08-25] MEDS ORDERED: SODIUM CL IRRIG SOLN BOTTLE 250 ML IRRIG ONE (14:02)
[2019-08-25 15:57] VITALS: BP 161/89
[2019-08-25 20:33] VITALS: BP 140/77
[2019-08-25] MEDS ORDERED: BUMETANIDE 1 MG TABLET PO SCH (21:00)
[2019-08-25 23:12] VITALS: BP 145/82
[2019-08-26] MEDS: CLINDAMYCIN 600 MG/D5% WATER 50 ML IV SCH ×3 (02:27→19:45)
[2019-08-26 03:48] LABS: GLUCOMETER DEV NAME(LOC) 5N.1; GLUCOSE,POINT OF CARE 390 MG/DL (70-110)
[2019-08-26 04:00] VITALS: BP 122/77
[2019-08-26] MEDS: INSULIN LISPRO 100 UNITS/ML SQ PRN ×4 (06:09→21:00)
[2019-08-26 07:17] VITALS: BP 123/69
[2019-08-26 07:59] LABS: CALCIUM, TOTAL 8.1 mg/dL (8.8-10.5); CREATININE 2.2 mg/dL (0.60-1.30); PHOSPHORUS 5.4 mg/dL (2.5-4.9); POTASSIUM 4.9 mmol/L (3.5-5.1)
[2019-08-26] MEDS: PANTOPRAZOLE SODIUM 40 MG DR TABLET PO SCH (08:41)
[2019-08-26] MEDS: PredniSONE 20 MG TABLET PO SCH (08:41)
[2019-08-26] MEDS: ASPIRIN 81 MG EC TABLET PO SCH (08:41)
[2019-08-26] MEDS: CARVEDILOL 6.25 MG TABLET PO SCH ×2 (08:41→20:48)
[2019-08-26] MEDS: HydrALAZINE HCL 25 MG TABLET PO SCH (08:41)
[2019-08-26] MEDS: MULTIVITAMINS WITH MINERALS, THERAPEUTIC TABLET PO SCH (08:41)
[2019-08-26] MEDS: DOCUSATE SODIUM 100 MG CAPSULE PO SCH ×2 (08:42→20:49)
[2019-08-26] MEDS: ELTROMBOPAG OLAMINE 75 MG PO SCH (10:06)
[2019-08-26 10:40] VITALS: BP 124/68
[2019-08-26] MEDS: SEVELAMER CARBONATE 800 MG TABLET PO SCH ×2 (11:44→17:58)
[2019-08-26] MEDS: BUMETANIDE 0.25 MG/ML 4 ML VIAL IVP SCH ×2 (13:43→20:49)
[2019-08-26 15:38] VITALS: BP 139/82
[2019-08-26 18:59] LABS: GLUCOMETER DEV NAME(LOC) 5N.1; GLUCOSE,POINT OF CARE 304 MG/DL (70-110)
[2019-08-26 19:00] LABS: GLUCOMETER DEV NAME(LOC) 5S.1; GLUCOSE,POINT OF CARE 342 MG/DL (70-110)
[2019-08-26 19:00] LABS: GLUCOMETER DEV NAME(LOC) 5S.1; GLUCOSE,POINT OF CARE 309 MG/DL (70-110)
[2019-08-26 19:00] LABS: GLUCOMETER DEV NAME(LOC) 5S.1; GLUCOSE,POINT OF CARE 230 MG/DL (70-110)
[2019-08-26 20:09] VITALS: BP 149/93
[2019-08-26] MEDS ORDERED: SODIUM CHLORIDE 0.9% 100 ML ONE (20:40)
[2019-08-27 00:22] VITALS: BP 141/77
[2019-08-27] MEDS: CLINDAMYCIN 600 MG/D5% WATER 50 ML IV SCH ×3 (02:59→19:57)
[2019-08-27 04:01] VITALS: BP 147/77
[2019-08-27 06:23] LABS: APPEARANCE,URINE CLEAR (CLEAR); BILIRUBIN,URINE NEGATIVE (NEGATIVE); GLUCOSE, URINE (UA) 250 mg/dL (NEGATIVE); KETONES,URINE NEGATIVE (NEGATIVE); LEUKOCYTE ESTERASE ,URINE NEGATIVE (NEGATIVE); NITRATE,URINE NEGATIVE (NEGATIVE); OCCULT BLOOD,URINE NEGATIVE (NEGATIVE); PH,URINE 6.5 (5.0-8.0); PROTEIN,URINE SEE CONFIRM (NEGATIVE); UROBILINOGEN,URINE 0.2 mg/dL (<=1.0)
[2019-08-27] MEDS: INSULIN LISPRO 100 UNITS/ML SQ PRN ×4 (06:31→20:48)
[2019-08-27 06:36] LABS: GLUCOMETER DEV NAME(LOC) 5N.1; GLUCOSE,POINT OF CARE 249 MG/DL (70-110)
[2019-08-27 06:46] LABS: GLUCOMETER DEV NAME(LOC) 5S.1; GLUCOSE,POINT OF CARE 300 MG/DL (70-110)
[2019-08-27 06:54] LABS: BACTERIA,URINE None Seen /HPF (None Seen); HYALINE CASTS, URINE 0-2 /LPF (None Seen); RBC,URINE None Seen /HPF (0-2); SQUAMOUS EPITHELIAL CELL,UR Rare /LPF (None Seen); SULFOSALICYLIC ACID,URINE 3+ (Negative); WBC,URINE None Seen /HPF (0-5)
[2019-08-27 07:19] VITALS: BP 122/67
[2019-08-27 07:42] LABS: BASOPHILS % (AUTO) 0.9 % (0.0-2.0); EOSINOPHILS % (AUTO) 1.9 % (1.0-6.0); HEMATOCRIT 27.9 % (36-46); HEMOGLOBIN 9.1 g/dL (12.0-16.0); LYMPHOCYTES # (AUTO) 0.9 K/uL (1.0-4.8); MEAN CORPUSCULAR HEMOGLOBIN 26.8 pg (26.0-34.0); MEAN CORPUSCULAR HGB CONC 32.4 G/dL (31.0-37.0); MEAN CORPUSCULAR VOLUME 83 fL (80-100); MONOCYTES # (AUTO) 0.6 K/uL (0.1-1.0); MONOCYTES % (AUTO) 13.4 % (2.0-9.0); NEUTROPHILS # (AUTO) 3.1 K/uL (1.8-7.7); NEUTROPHILS % (AUTO) 64.8 % (40.0-70.0); RED BLOOD CELL COUNT(AUTO) 3.38 MIL/uL (4.00-5.20); RED CELL DISTRIBUTION WIDTH 17.2 % (11.5-14.5)
[2019-08-27 07:50] LABS: CREATININE 2.16 mg/dL (0.60-1.30); PHOSPHORUS 5.5 mg/dL (2.5-4.9); POTASSIUM 4.4 mmol/L (3.5-5.1)
[2019-08-27] MEDS: CARVEDILOL 6.25 MG TABLET PO SCH ×2 (08:41→20:44)
[2019-08-27] MEDS: MULTIVITAMINS WITH MINERALS, THERAPEUTIC TABLET PO SCH (08:41)
[2019-08-27] MEDS: PredniSONE 20 MG TABLET PO SCH (08:41)
[2019-08-27] MEDS: BUMETANIDE 0.25 MG/ML 4 ML VIAL IVP SCH ×2 (08:42→20:44)
[2019-08-27] MEDS: ASPIRIN 81 MG EC TABLET PO SCH (08:42)
[2019-08-27] MEDS: PANTOPRAZOLE SODIUM 40 MG DR TABLET PO SCH (08:42)
[2019-08-27] MEDS: ELTROMBOPAG OLAMINE 75 MG PO SCH (08:42)
[2019-08-27] MEDS: DOCUSATE SODIUM 100 MG CAPSULE PO SCH ×2 (08:42→20:44)
[2019-08-27] MEDS: SEVELAMER CARBONATE 800 MG TABLET PO SCH ×3 (08:42→18:14)
[2019-08-27 09:17] LABS: PLATELET COUNT (AUTO) 34 K/uL (150-450)
[2019-08-27] MEDS ORDERED: METOLAZONE 5 MG TABLET PO ONE (10:00)
[2019-08-27 12:00] VITALS: BP 121/73
[2019-08-27] MEDS: LEVOFLOXACIN 750 MG/D5% WATER 150 ML IV SCH (13:10)
[2019-08-27 15:56] VITALS: BP 141/72
[2019-08-27] MEDS: GlipiZIDE 5 MG TABLET PO SCH (18:14)
[2019-08-27 19:44] VITALS: BP 146/76
[2019-08-28 01:40] VITALS: BP 155/84
[2019-08-28 03:40] LABS: GLUCOMETER DEV NAME(LOC) 5S.1; GLUCOSE,POINT OF CARE 313 MG/DL (70-110)
[2019-08-28 03:40] LABS: GLUCOMETER DEV NAME(LOC) 5S.1; GLUCOSE,POINT OF CARE 331 MG/DL (70-110)
[2019-08-28] MEDS: CLINDAMYCIN 600 MG/D5% WATER 50 ML IV SCH ×2 (03:48→12:28)
[2019-08-28 04:46] VITALS: BP 141/89
[2019-08-28] MEDS: GlipiZIDE 5 MG TABLET PO SCH (06:06)
[2019-08-28] MEDS: INSULIN LISPRO 100 UNITS/ML SQ PRN ×2 (06:10→12:31)
[2019-08-28 07:01] LABS: CREATININE 2.58 mg/dL (0.60-1.30); PHOSPHORUS 5.7 mg/dL (2.5-4.9); POTASSIUM 4.6 mmol/L (3.5-5.1)
[2019-08-28 07:09] VITALS: BP 141/78
[2019-08-28 07:39] LABS: GLUCOMETER DEV NAME(LOC) 5S.1; GLUCOSE,POINT OF CARE 290 MG/DL (70-110)
[2019-08-28] MEDS: DOCUSATE SODIUM 100 MG CAPSULE PO SCH (08:35)
[2019-08-28] MEDS: MULTIVITAMINS WITH MINERALS, THERAPEUTIC TABLET PO SCH (08:35)
[2019-08-28] MEDS: CARVEDILOL 6.25 MG TABLET PO SCH (08:35)
[2019-08-28] MEDS: PANTOPRAZOLE SODIUM 40 MG DR TABLET PO SCH (08:35)
[2019-08-28] MEDS: SEVELAMER CARBONATE 800 MG TABLET PO SCH ×2 (08:35→12:28)
[2019-08-28] MEDS: ELTROMBOPAG OLAMINE 75 MG PO SCH (08:35)
[2019-08-28] MEDS: PredniSONE 20 MG TABLET PO SCH (08:35)
[2019-08-28] MEDS: ASPIRIN 81 MG EC TABLET PO SCH (08:39)
[2019-08-28 11:01] VITALS: BP 131/73
[2019-08-28] MEDS ORDERED: SODIUM CHLORIDE 0.9% IV SCH (19:00)
[2019-08-28] MEDS ORDERED: CLINDAMYCIN PHOSPHATE IV SCH (19:00)
[2019-08-28 21:58] LABS: GLUCOMETER DEV NAME(LOC) 5S.1; GLUCOSE,POINT OF CARE 264 MG/DL (70-110)
== END 2019-08-28 16:30 | disposition home or self-care (01) | DRG 344 ==
LOC: EMS 18:12 → 5N 08-21 00:17
PROVIDERS: ADMIT Internal Medicine; ATTEND Internal Medicine
DX: E11.69 Type 2 diabetes mellitus with other specified complication (principal); M86.679 Other chronic osteomyelitis, unspecified ankle and foot; E43 Unspecified severe protein-calorie malnutrition; I50.31 Acute diastolic (congestive) heart failure; D69.3 Immune thrombocytopenic purpura; D69.6 Thrombocytopenia, unspecified; E11.22 Type 2 diabetes mellitus with diabetic chronic kidney disease; E11.40 Type 2 diabetes mellitus with diabetic neuropathy, unspecified; E11.52 Type 2 diabetes mellitus with diabetic peripheral angiopathy with gangrene; I73.9 Peripheral vascular disease, unspecified; I13.0 Hypertensive heart and chronic kidney disease with heart failure and stage 1 through stage 4 chronic kidney disease, or unspecified chronic kidney disease; G40.909 Epilepsy, unspecified, not intractable, without status epilepticus; D63.8 Anemia in other chronic diseases classified elsewhere; I25.10 Atherosclerotic heart disease of native coronary artery without angina pectoris; E11.65 Type 2 diabetes mellitus with hyperglycemia; N18.3 Chronic kidney disease, stage 3 (moderate); E88.09 Other disorders of plasma-protein metabolism, not elsewhere classified; E83.51 Hypocalcemia; F17.210 Nicotine dependence, cigarettes, uncomplicated; Z91.19 Patient's noncompliance with other medical treatment and regimen; Z89.421 Acquired absence of other right toe(s); Z68.28 Body mass index [BMI] 28.0-28.9, adult; Z86.73 Personal history of transient ischemic attack (TIA), and cerebral infarction without residual deficits; Z79.4 Long term (current) use of insulin; Z79.82 Long term (current) use of aspirin; Z79.899 Other long term (current) drug therapy
CPT/HCPCS: 74176; 83735; 84100; 87081; 93005; 93306; 94761; J0690; J1940; J1956; J2270; J3490; J7050

== ENCOUNTER → 2019-09-04 | Outpatient (CLI) | payer SELFPAY ==
[~2019-09-04] MED LIST changes: -CEFA1IV IV; -LEVO250T75 PO; +LIDOCAINE 4% 50 ML SOLUTION TP ONE; -METF-960 PO
== END | disposition home or self-care (01) ==
LOC: HBOWC 09:09
PROVIDERS: ATTEND Surgery Plastic and Reconstructive Surgery
DX: T81.31XA Disruption of external operation (surgical) wound, not elsewhere classified, initial encounter (principal); E11.622 Type 2 diabetes mellitus with other skin ulcer; L97.812 Non-pressure chronic ulcer of other part of right lower leg with fat layer exposed; L97.512 Non-pressure chronic ulcer of other part of right foot with fat layer exposed; I10 Essential (primary) hypertension; Z86.73 Personal history of transient ischemic attack (TIA), and cerebral infarction without residual deficits; Z89.421 Acquired absence of other right toe(s); Y83.8 Other surgical procedures as the cause of abnormal reaction of the patient, or of later complication, without mention of misadventure at the time of the procedure; Y92.89 Other specified places as the place of occurrence of the external cause
CPT/HCPCS: 11043; 11044; 11046